=== PATIENT | male | born 1960 | race Caucasian/White ===

== ENCOUNTER 2017-08-24 02:09 | Outpatient (RCR) | payer MEDICARE, MEDICAID, SELFPAY ==
[2017-08-24] MEDS: Normal Saline Flush 10 ML SYR IVP (14:34)
[2017-08-24] MEDS: Heparin 500 UNITS/5 ML SYRINGE IV (14:34)
[2017-08-31] MEDS: Normal Saline Flush 10 ML SYR IVP (13:53)
[2017-08-31] MEDS: Heparin 500 UNITS/5 ML SYRINGE IV (13:53)
[2017-09-14] MEDS: Normal Saline Flush 10 ML SYR IVP (14:00)
[2017-09-14] MEDS: Heparin 500 UNITS/5 ML SYRINGE IV (14:00)
== END 2017-09-20 00:01 | disposition other institution (70) ==
LOC: INF 08-31 02:14
PROVIDERS: PCP Student in an Organized Health Care Education/Training Program; Visit Provider Internal Medicine
DX: E88.01 Alpha-1-antitrypsin deficiency (principal)
CPT/HCPCS: 96374 ×3; J0257 ×3

== ENCOUNTER → 2017-10-20 02:55 | Outpatient (RCR) | payer MEDICARE, MEDICAID, SELFPAY ==
[2017-09-21] MEDS: Heparin 500 UNITS/5 ML SYRINGE IV (13:15)
[2017-09-21] MEDS: Normal Saline Flush 10 ML SYR IVP (13:15)
[2017-09-21] MEDS: Proteinase Inhibitor 5 VIAL in EMPTY EVACUATED CONTAINER 1 EACH 100 VIAL IVPB (13:45)
[2017-09-28] MEDS: Heparin 500 UNITS/5 ML SYRINGE IV (13:30)
[2017-09-28] MEDS: Normal Saline Flush 10 ML SYR IVP (13:30)
[2017-09-28] MEDS: Proteinase Inhibitor 5 VIAL in EMPTY EVACUATED CONTAINER 1 EACH 100 VIAL IVPB (13:50)
[2017-10-05] MEDS: Normal Saline Flush 10 ML SYR IVP (13:51)
[2017-10-05] MEDS: Heparin 500 UNITS/5 ML SYRINGE IV (13:51)
[2017-10-05] MEDS: Proteinase Inhibitor 5 VIAL in EMPTY EVACUATED CONTAINER 1 EACH 100 VIAL IVPB (13:51)
[2017-10-12] MEDS: Proteinase Inhibitor 5 VIAL in EMPTY EVACUATED CONTAINER 1 EACH 100 VIAL IVPB (14:02)
[2017-10-12] MEDS: Heparin 500 UNITS/5 ML SYRINGE IV (14:03)
[2017-10-12] MEDS: Normal Saline Flush 10 ML SYR IVP (14:03)
[2017-10-20] MEDS: Proteinase Inhibitor 5 VIAL in EMPTY EVACUATED CONTAINER 1 EACH 100 VIAL IVPB (14:20)
[2017-10-20] MEDS: Heparin 500 UNITS/5 ML SYRINGE IV (14:20)
[2017-10-20] MEDS: Normal Saline Flush 10 ML SYR IVP (14:20)
== END ==
LOC: INF 09-21 01:02
PROVIDERS: PCP Student in an Organized Health Care Education/Training Program; Visit Provider Internal Medicine
DX: E88.01 Alpha-1-antitrypsin deficiency (principal)
CPT/HCPCS: 96374; 96523; J0257

== ENCOUNTER 2017-11-17 00:31 | Outpatient (RCR) | payer MEDICARE, MEDICAID, SELFPAY ==
[2017-10-26] MEDS: Proteinase Inhibitor 5 VIAL in EMPTY EVACUATED CONTAINER 1 EACH 100 VIAL IVPB (14:21)
[2017-10-26] MEDS: Normal Saline Flush 10 ML SYR IVP (14:22)
[2017-10-26] MEDS: Heparin 500 UNITS/5 ML SYRINGE IV (14:23)
[2017-11-03] MEDS: Normal Saline Flush 10 ML SYR IVP (13:45)
[2017-11-03] MEDS: Proteinase Inhibitor 5 VIAL in EMPTY EVACUATED CONTAINER 1 EACH 125 VIAL IVPB (14:20)
[2017-11-03] MEDS: Heparin 500 UNITS/5 ML SYRINGE IV (14:40)
[2017-11-09] MEDS: Heparin 500 UNITS/5 ML SYRINGE IV (14:18)
[2017-11-09] MEDS: Normal Saline Flush 10 ML SYR IVP (14:18)
[2017-11-09] MEDS: Proteinase Inhibitor 5 VIAL in EMPTY EVACUATED CONTAINER 1 EACH 100 VIAL IVPB (14:20)
[2017-11-17] MEDS: Normal Saline Flush 10 ML SYR IVP (13:49)
[2017-11-17] MEDS: Proteinase Inhibitor 5 VIAL in EMPTY EVACUATED CONTAINER 1 EACH 100 VIAL IVPB (13:49)
[2017-11-17] MEDS: Heparin 500 UNITS/5 ML SYRINGE IV (13:50)
== END 2017-11-19 23:59 | disposition home or self-care (01) ==
LOC: INF 00:31
PROVIDERS: PCP Student in an Organized Health Care Education/Training Program; Visit Provider Student in an Organized Health Care Education/Training Program
DX: E88.01 Alpha-1-antitrypsin deficiency (principal)
CPT/HCPCS: 96374; J0257

== ENCOUNTER 2017-12-01 15:54 | Outpatient (REF) | payer MEDICARE, MEDICAID, SELFPAY ==
[2017-12-01 17:21] LABS: BUN 12 mg/dL (7-18); CREATININE 0.42 mg/dL (0.70-1.30)
== END 2017-12-01 16:14 ==
LOC: LBN 15:54
PROVIDERS: PCP Student in an Organized Health Care Education/Training Program; Visit Provider Family Medicine
DX: Z04.89 Encounter for examination and observation for other specified reasons (principal); I10 Essential (primary) hypertension; E78.5 Hyperlipidemia, unspecified; E88.01 Alpha-1-antitrypsin deficiency
CPT/HCPCS: 84520; 82565

== ENCOUNTER 2017-12-12 14:33 | Outpatient (REF) | payer MEDICARE, MEDICAID, SELFPAY ==
[2017-12-12 14:51] LABS: Anion Gap 0.5 mmol/L (3-11); BUN 16 mg/dL (7-18); CO2 41.5 mmol/L (21.0-32.0); CREATININE 0.59 mg/dL (0.70-1.30); Calcium 9.1 mg/dL (8.5-10.1); Chloride 95 mmol/L (98-107); Glucose 94 mg/dL (70-100); Potassium 4.1 mmol/L (3.5-5.1); Sodium 137 mmol/L (136-145)
== END 2017-12-12 14:53 ==
LOC: LBN 14:33
PROVIDERS: PCP Student in an Organized Health Care Education/Training Program; Visit Provider Family Medicine
DX: J44.9 Chronic obstructive pulmonary disease, unspecified (principal); E88.01 Alpha-1-antitrypsin deficiency
CPT/HCPCS: 80048

== ENCOUNTER 2017-12-14 00:53 | Outpatient (RCR) | payer MEDICARE, MEDICAID, SELFPAY ==
[2017-11-24] MEDS: Proteinase Inhibitor 5 VIAL in EMPTY EVACUATED CONTAINER 1 EACH 100 VIAL IVPB (14:43)
[2017-11-24] MEDS: Normal Saline Flush 10 ML SYR IVP (14:46)
[2017-11-24] MEDS: Heparin 500 UNITS/5 ML SYRINGE IV (14:46)
[2017-11-30] MEDS: Proteinase Inhibitor 5 VIAL in EMPTY EVACUATED CONTAINER 1 EACH 100 VIAL IVPB (14:42)
[2017-11-30] MEDS: Normal Saline Flush 10 ML SYR IVP (14:43)
[2017-11-30] MEDS: Heparin 500 UNITS/5 ML SYRINGE IV (14:43)
[2017-12-07] MEDS: Heparin 500 UNITS/5 ML SYRINGE IV (14:50)
[2017-12-07] MEDS: Normal Saline Flush 10 ML SYR IVP (14:50)
[2017-12-07] MEDS: Proteinase Inhibitor 5 VIAL in EMPTY EVACUATED CONTAINER 1 EACH 100 VIAL IVPB (14:50)
[2017-12-14] MEDS: Normal Saline Flush 10 ML SYR IVP (13:45)
[2017-12-14] MEDS: Heparin 500 UNITS/5 ML SYRINGE IV (13:45)
[2017-12-14] MEDS: Proteinase Inhibitor 5 VIAL in EMPTY EVACUATED CONTAINER 1 EACH 100 VIAL IVPB (14:15)
== END 2017-12-20 23:59 | disposition home or self-care (01) ==
LOC: INF 00:53
PROVIDERS: PCP Student in an Organized Health Care Education/Training Program; Visit Provider Student in an Organized Health Care Education/Training Program
DX: E88.01 Alpha-1-antitrypsin deficiency (principal)
CPT/HCPCS: 96374; 96523; J0257

== ENCOUNTER 2018-01-18 02:04 | Outpatient (RCR) | payer MEDICARE, MEDICAID, SELFPAY ==
[2017-12-21] MEDS: Normal Saline Flush 10 ML SYR IVP (14:06)
[2017-12-21] MEDS: Heparin 500 UNITS/5 ML SYRINGE IV (14:06)
[2017-12-21] MEDS: Proteinase Inhibitor 5 VIAL in EMPTY EVACUATED CONTAINER 1 EACH 100 VIAL IVPB (14:17)
[2017-12-28] MEDS: Normal Saline Flush 10 ML SYR IVP (14:05)
[2017-12-28] MEDS: Heparin 500 UNITS/5 ML SYRINGE IV (14:05)
[2017-12-28] MEDS: Proteinase Inhibitor 5 VIAL in EMPTY EVACUATED CONTAINER 1 EACH 100 VIAL IVPB (14:05)
[2018-01-04] MEDS: Normal Saline Flush 10 ML SYR IVP (14:02)
[2018-01-04] MEDS: Heparin 500 UNITS/5 ML SYRINGE IV (14:03)
[2018-01-04] MEDS: Proteinase Inhibitor 5 VIAL in EMPTY EVACUATED CONTAINER 1 EACH 125 VIAL IVPB (14:21)
[2018-01-10] MEDS: Normal Saline Flush 10 ML SYR IVP (14:24)
[2018-01-10] MEDS: Heparin 500 UNITS/5 ML SYRINGE IV (14:24)
[2018-01-10] MEDS: Proteinase Inhibitor 5 VIAL in EMPTY EVACUATED CONTAINER 1 EACH 100 VIAL IVPB (14:24)
[2018-01-18] MEDS: Proteinase Inhibitor 5 VIAL in EMPTY EVACUATED CONTAINER 1 EACH 100 VIAL IVPB (14:27)
[2018-01-18] MEDS: Normal Saline Flush 10 ML SYR IVP (14:28)
== END 2018-01-19 23:59 | disposition home or self-care (01) ==
LOC: INF 02:04
PROVIDERS: PCP Student in an Organized Health Care Education/Training Program; Visit Provider Student in an Organized Health Care Education/Training Program
DX: E88.01 Alpha-1-antitrypsin deficiency (principal)
CPT/HCPCS: 96374; J0257

== ENCOUNTER 2018-02-15 01:57 | Outpatient (RCR) | payer MEDICARE, MEDICAID, SELFPAY ==
[2018-01-25] MEDS: Normal Saline Flush 10 ML SYR IVP (13:30)
[2018-01-25] MEDS: Heparin 500 UNITS/5 ML SYRINGE IV (13:30)
[2018-01-25] MEDS: Proteinase Inhibitor 5 VIAL in EMPTY EVACUATED CONTAINER 1 EACH 100 VIAL IVPB (14:00)
[2018-02-01] MEDS: Heparin 500 UNITS/5 ML SYRINGE IV (13:47)
[2018-02-01] MEDS: Normal Saline Flush 10 ML SYR IVP (13:47)
[2018-02-01] MEDS: Proteinase Inhibitor 5 VIAL in EMPTY EVACUATED CONTAINER 1 EACH 100 VIAL IVPB (14:09)
[2018-02-08] MEDS: Heparin 500 UNITS/5 ML SYRINGE IV (14:11)
[2018-02-08] MEDS: Normal Saline Flush 10 ML SYR IVP (14:11)
[2018-02-08] MEDS: Proteinase Inhibitor 5 VIAL in EMPTY EVACUATED CONTAINER 1 EACH 100 VIAL IVPB (14:11)
[2018-02-15] MEDS: Proteinase Inhibitor 5 VIAL in EMPTY EVACUATED CONTAINER 1 EACH 50 VIAL IVPB (13:51)
[2018-02-15] MEDS: Normal Saline Flush 10 ML SYR IVP (13:51)
[2018-02-15] MEDS: Heparin 500 UNITS/5 ML SYRINGE IV (13:52)
== END 2018-02-19 23:59 | disposition home or self-care (01) ==
LOC: INF 01:57
PROVIDERS: PCP Student in an Organized Health Care Education/Training Program; Visit Provider Student in an Organized Health Care Education/Training Program
DX: E88.01 Alpha-1-antitrypsin deficiency (principal)
CPT/HCPCS: 96374; 96523; J0257

== ENCOUNTER 2018-03-16 12:13 | Outpatient (REF) | payer MEDICARE, MEDICAID, SELFPAY ==
[2018-03-16 14:23] LABS: Abs Immature Grans 0.01 k/cumm (0.0-0.09); Absolute Basophil Count 0.01 k/cumm (0.0-0.2); Absolute Eosinophil Count 0.55 k/cumm (0.0-0.7); Absolute Lymphocyte Count 1.26 k/cumm (1.2-3.4); Absolute Monocyte Count 0.97 k/cumm (0.11-0.7); Absolute Neutrophil Count 5.33 k/cumm (1.2-6.7); Basophils % 0.1; Eosinophils % 6.8; HCT 36.1 % (40.0-50.0); HGB 10.6 g/dL (13.5-17.5); Immature Grans % 0.1; Lymphocytes % 15.5; Mean Corp. HGB Concentration 29.4 g/dL (32.0-36.0); Mean Corpuscular Hemoglobin 26.5 pg (27.0-33.0); Mean Corpuscular Volume 90.3 fL (80-95); Mean Platelet Volume 10.9 fL (8.0-11.0); Monocytes % 11.9; Neutrophils % 65.6; Platelet Count 289 x1000/uL (130-400); RBC Distribution Width 14.4 % (11.8-14.1); White Blood Cell Count 8.13 k/cumm (4.4-10.8)
[2018-03-16 23:12] LABS: Theophylline 7.4 ug/mL (10.0-20.0)
== END 2018-03-16 12:33 ==
LOC: LBN 12:13
PROVIDERS: PCP Student in an Organized Health Care Education/Training Program; Visit Provider Student in an Organized Health Care Education/Training Program
DX: J44.9 Chronic obstructive pulmonary disease, unspecified (principal); Z51.81 Encounter for therapeutic drug level monitoring; I10 Essential (primary) hypertension; E78.5 Hyperlipidemia, unspecified; F41.9 Anxiety disorder, unspecified
CPT/HCPCS: 80198; 85025

== ENCOUNTER 2018-03-22 01:30 | Outpatient (RCR) | payer MEDICARE, MEDICAID, SELFPAY ==
[2018-02-22] MEDS: Proteinase Inhibitor 5 VIAL in EMPTY EVACUATED CONTAINER 1 EACH 100 VIAL IVPB (14:05)
[2018-02-22] MEDS: Normal Saline Flush 10 ML SYR IVP (14:05)
[2018-02-22] MEDS: Heparin 500 UNITS/5 ML SYRINGE IV (14:06)
[2018-03-01] MEDS: Normal Saline Flush 10 ML SYR IVP (13:30)
[2018-03-01] MEDS: Proteinase Inhibitor 5 VIAL in EMPTY EVACUATED CONTAINER 1 EACH 100 VIAL IVPB (13:50)
[2018-03-01] MEDS: Heparin 500 UNITS/5 ML SYRINGE IV (14:04)
[2018-03-08] MEDS: Proteinase Inhibitor 5 VIAL in EMPTY EVACUATED CONTAINER 1 EACH 1 VIAL IVPB (13:55)
[2018-03-08] MEDS: Heparin 500 UNITS/5 ML SYRINGE IV (14:02)
[2018-03-08] MEDS: Normal Saline Flush 10 ML SYR IVP (14:02)
[2018-03-15] MEDS: Normal Saline Flush 10 ML SYR IVP (14:14)
[2018-03-15] MEDS: Heparin 500 UNITS/5 ML SYRINGE IV (14:14)
[2018-03-15] MEDS: Proteinase Inhibitor 5 VIAL in EMPTY EVACUATED CONTAINER 1 EACH 100 VIAL IVPB (14:14)
[2018-03-22] MEDS: Proteinase Inhibitor 5 VIAL in EMPTY EVACUATED CONTAINER 1 EACH 100 VIAL IVPB (13:51)
[2018-03-22] MEDS: Normal Saline Flush 10 ML SYR IVP (13:52)
[2018-03-22] MEDS: Heparin 500 UNITS/5 ML SYRINGE IV (13:52)
== END 2018-03-22 23:59 | disposition home or self-care (01) ==
LOC: INF 01:30
PROVIDERS: PCP Student in an Organized Health Care Education/Training Program; Visit Provider Student in an Organized Health Care Education/Training Program
DX: E88.01 Alpha-1-antitrypsin deficiency (principal)
CPT/HCPCS: 96374; J0257

== ENCOUNTER 2018-04-19 01:10 | Outpatient (RCR) | payer MEDICARE, MEDICAID, SELFPAY ==
[2018-03-29] MEDS: Proteinase Inhibitor 5 VIAL in EMPTY EVACUATED CONTAINER 1 EACH 100 VIAL IVPB (13:47)
[2018-03-29] MEDS: Normal Saline Flush 10 ML SYR IVP (13:47)
[2018-03-29] MEDS: Heparin 500 UNITS/5 ML SYRINGE IV (13:47)
[2018-04-05] MEDS: Proteinase Inhibitor 5 VIAL in EMPTY EVACUATED CONTAINER 1 EACH 100 VIAL IVPB (13:53)
[2018-04-05] MEDS: Heparin 500 UNITS/5 ML SYRINGE IV (13:56)
[2018-04-05] MEDS: Normal Saline Flush 10 ML SYR IVP (13:56)
[2018-04-12] MEDS: Heparin 500 UNITS/5 ML SYRINGE IV (13:49)
[2018-04-12] MEDS: Normal Saline Flush 10 ML SYR IVP (13:49)
[2018-04-12] MEDS: Proteinase Inhibitor 5 VIAL in EMPTY EVACUATED CONTAINER 1 EACH 50 VIAL IVPB (14:00)
[2018-04-19] MEDS: Proteinase Inhibitor 5 VIAL in EMPTY EVACUATED CONTAINER 1 EACH 100 VIAL IVPB (13:57)
[2018-04-19] MEDS: Heparin 500 UNITS/5 ML SYRINGE IV (14:02)
[2018-04-19] MEDS: Normal Saline Flush 10 ML SYR IVP (14:02)
== END 2018-04-19 23:59 | disposition home or self-care (01) ==
LOC: INF 01:10
PROVIDERS: PCP Student in an Organized Health Care Education/Training Program; Visit Provider Student in an Organized Health Care Education/Training Program
DX: E88.01 Alpha-1-antitrypsin deficiency (principal)
CPT/HCPCS: 96374; 96523; J0257

== ENCOUNTER 2018-05-17 00:40 | Outpatient (RCR) | payer MEDICARE, MEDICAID, SELFPAY ==
[2018-04-26] MEDS: Normal Saline Flush 10 ML SYR IVP (14:02)
[2018-04-26] MEDS: Heparin 500 UNITS/5 ML SYRINGE IV (14:02)
[2018-04-26] MEDS: Proteinase Inhibitor 5 VIAL in EMPTY EVACUATED CONTAINER 1 EACH 100 VIAL IVPB (14:03)
[2018-05-04] MEDS: Heparin 500 UNITS/5 ML SYRINGE IV (14:24)
[2018-05-04] MEDS: Normal Saline Flush 10 ML SYR IVP (14:24)
[2018-05-04] MEDS: Proteinase Inhibitor 5 VIAL in EMPTY EVACUATED CONTAINER 1 EACH 100 VIAL IVPB (14:25)
[2018-05-10] MEDS: Normal Saline Flush 10 ML SYR IVP ×2 (13:45→14:00)
[2018-05-10] MEDS: Heparin 500 UNITS/5 ML SYRINGE IV ×2 (14:00)
[2018-05-10] MEDS: Proteinase Inhibitor 5 VIAL in EMPTY EVACUATED CONTAINER 1 EACH 100 VIAL IVPB (14:05)
[2018-05-17] MEDS: Proteinase Inhibitor 5 VIAL in EMPTY EVACUATED CONTAINER 1 EACH 100 VIAL IVPB (13:47)
[2018-05-17] MEDS: Normal Saline Flush 10 ML SYR IVP (13:53)
[2018-05-17] MEDS: Heparin 500 UNITS/5 ML SYRINGE IV (13:53)
== END 2018-05-20 23:59 | disposition home or self-care (01) ==
LOC: INF 00:40
PROVIDERS: PCP Student in an Organized Health Care Education/Training Program; Visit Provider Student in an Organized Health Care Education/Training Program
DX: E88.01 Alpha-1-antitrypsin deficiency (principal)
CPT/HCPCS: 96374; J0257

== ENCOUNTER 2018-06-12 09:56 | Outpatient (CLI) | payer MEDICARE, MEDICAID, SELFPAY ==
[2018-06-12 11:06] LABS: Anion Gap 0.4 mmol/L (3-11); BUN 13 mg/dL (7-18); CO2 41.6 mmol/L (21.0-32.0); CREATININE 0.56 mg/dL (0.70-1.30); Calcium 8.7 mg/dL (8.5-10.1); Chloride 96 mmol/L (98-107); Glucose 94 mg/dL (70-100); Sodium 138 mmol/L (136-145)
== END 2018-06-12 10:16 ==
PROVIDERS: PCP Student in an Organized Health Care Education/Training Program; Visit Provider Nurse Practitioner Adult Health
DX: M62.81 Muscle weakness (generalized) (principal)
CPT/HCPCS: 80048

== ENCOUNTER 2018-06-14 02:16 | Outpatient (RCR) | payer MEDICARE, MEDICAID, SELFPAY ==
[2018-05-25] MEDS: Proteinase Inhibitor 5 VIAL in EMPTY EVACUATED CONTAINER 1 EACH 100 VIAL IVPB (13:55)
[2018-05-25] MEDS: Heparin 500 UNITS/5 ML SYRINGE IV (14:03)
[2018-05-25] MEDS: Normal Saline Flush 10 ML SYR IVP (14:03)
[2018-05-31] MEDS: Heparin 500 UNITS/5 ML SYRINGE IV (13:30)
[2018-05-31] MEDS: Normal Saline Flush 10 ML SYR IVP (13:30)
[2018-05-31] MEDS: Proteinase Inhibitor 5 VIAL in EMPTY EVACUATED CONTAINER 1 EACH 100 VIAL IVPB (13:48)
[2018-06-07] MEDS: Heparin 500 UNITS/5 ML SYRINGE IV (13:30)
[2018-06-07] MEDS: Normal Saline Flush 10 ML SYR IVP (13:30)
[2018-06-07] MEDS: Proteinase Inhibitor 5 VIAL in EMPTY EVACUATED CONTAINER 1 EACH 100 VIAL IVPB (13:40)
[2018-06-14] MEDS: Normal Saline Flush 10 ML SYR IVP (13:30)
[2018-06-14] MEDS: Proteinase Inhibitor 5 VIAL in EMPTY EVACUATED CONTAINER 1 EACH 100 VIAL IVPB (14:10)
[2018-06-14] MEDS: Heparin 500 UNITS/5 ML SYRINGE IV (14:20)
== END 2018-06-19 23:59 | disposition home or self-care (01) ==
LOC: INF 02:16
PROVIDERS: PCP Student in an Organized Health Care Education/Training Program; Visit Provider Student in an Organized Health Care Education/Training Program
DX: E88.01 Alpha-1-antitrypsin deficiency (principal)
CPT/HCPCS: 96365; 96374; J0257

== ENCOUNTER 2018-07-19 01:58 | Outpatient (RCR) | payer MEDICARE, MEDICAID, SELFPAY ==
[2018-06-21] MEDS: Proteinase Inhibitor 5 VIAL in EMPTY EVACUATED CONTAINER 1 EACH 100 VIAL IVPB (14:00)
[2018-06-21] MEDS: Normal Saline Flush 10 ML SYR IVP (14:53)
[2018-06-21] MEDS: Heparin 500 UNITS/5 ML SYRINGE IV (15:08)
[2018-06-27] MEDS: Proteinase Inhibitor 5 VIAL in EMPTY EVACUATED CONTAINER 1 EACH 100 VIAL IVPB (13:40)
[2018-06-27] MEDS: Normal Saline Flush 10 ML SYR IVP (13:46)
[2018-06-27] MEDS: Heparin 500 UNITS/5 ML SYRINGE IV (13:54)
[2018-07-05] MEDS: Proteinase Inhibitor 5 VIAL in EMPTY EVACUATED CONTAINER 1 EACH 100 VIAL IVPB (13:54)
[2018-07-05] MEDS: Heparin 500 UNITS/5 ML SYRINGE IV (13:55)
[2018-07-05] MEDS: Normal Saline Flush 10 ML SYR IVP (13:55)
[2018-07-12] MEDS: Heparin 500 UNITS/5 ML SYRINGE IV (13:58)
[2018-07-12] MEDS: Normal Saline Flush 10 ML SYR IVP (13:58)
[2018-07-12] MEDS: Proteinase Inhibitor 5 VIAL in EMPTY EVACUATED CONTAINER 1 EACH 100 VIAL IVPB (14:09)
[2018-07-19] MEDS: Heparin 500 UNITS/5 ML SYRINGE IV (13:44)
[2018-07-19] MEDS: Normal Saline Flush 10 ML SYR IVP (13:44)
[2018-07-19] MEDS: Proteinase Inhibitor 5 VIAL in EMPTY EVACUATED CONTAINER 1 EACH 100 VIAL IVPB (13:44)
== END 2018-07-20 23:59 | disposition home or self-care (01) ==
LOC: INF 01:58
PROVIDERS: PCP Student in an Organized Health Care Education/Training Program; Visit Provider Student in an Organized Health Care Education/Training Program
DX: E88.01 Alpha-1-antitrypsin deficiency (principal)
CPT/HCPCS: 96374; J0257

== ENCOUNTER 2018-07-26 13:51 | Emergency (ER) | payer MEDICARE, MEDICAID, SELFPAY ==
[2018-07-26 13:54] VITALS: BP 123/84; PULSE 103; RESP 22; TEMP 37.2; O2SAT 94
--- NOTE | 2018-07-26 14:01 | W.ED.GENAD ---
Discharge Plan Disposition Patient Disposition: HOME Condition: Stable Discharge Details Chief Complaint: SOB Clinical Impression: COPD with exacerbation Primary Care Provider: Piper Ji ED Provider: Lucas Saldivar Home Meds and New Rx's Prescriptions: New prednisone 20 mg tablet 60 mg PO DAILY 4 Days Qty: 12 RF: 0 levofloxacin 750 mg tablet 750 mg PO DAILY 4 Days Qty: 4 RF: 0 Continued alpha-1 proteinase inhib.(hum) [Prolastin-C] 1,000 MG recon soln 1,000 mg IV . MONDAY RF: 0 loratadine 10 MG tablet,disintegrating 10 mg PO DAILY RF: 0 ipratropium-albuterol [DuoNeb] 3 ML solution for nebulization 3 ml Inhalation QID RF: 0 theophylline 100 MG tablet extended release 12 hr 200 mg PO BID RF: 0 omeprazole [Prilosec] 20 MG capsule,delayed release(DR/EC) 20 mg PO DAILY RF: 0 montelukast 10 MG tablet 10 mg PO DAILY RF: 0 ipratropium-albuterol [Combivent] 14.7 GM aerosol 2 puff Inhalation QID RF: 0 docusate sodium [Colace] 100 MG capsule 100 mg PO BID PRNQty: 180 RF: 4 sennosides [Senna Laxative] 8.6 MG tablet 2 tab PO BID RF: 0 morphine 15 MG tablet 15 mg PO Q6H PRNQty: 30 RF: 0 alprazolam 0.5 MG tablet PO s directed MDD 5 tabs Qty: 70 RF: 5 methadone 5 MG tablet 2.5 mg PO HS Qty: 14 RF: 0 methadone [Dolophine] 5 mg tablet See Rx Instructions PO TID MDD 17.5 14 Days Qty: 50 RF: 0 Inogen oxygen conserving device Qty: 1 RF: 0 albuterol sulfate [Ventolin HFA] 60 PUFF HFA aerosol inhaler 2 puff Inhalation Q4H PRN PRN (Reason: dyspnea) Qty: 3 RF: 0 acetaminophen 650 MG tablet extended release 650 mg PO PRN PRNRF: 0 naproxen 250 MG tablet 500 mg PO BID PRNRF: 0 simethicone 80 MG tablet,chewable 80 mg PO BID RF: 0 bisacodyl 10 MG suppository 1 supp PRN PRNRF: 0 guaifenesin [Mucinex] 600 MG tablet extended release 12hr 600 mg BID RF: 0 formoterol fumarate [Foradil Aerolizer] 1 PUFF capsule, w/inhalation device 1 cap Inhalation BID RF: 0 lidocaine [Lidoderm] 1 PATCH adhesive patch,medicated 1 patch Topical Q12H PRNRF: 0 aspirin [Aspir-81] 81 MG tablet,delayed release (DR/EC) 81 mg PO DAILY RF: 0 paroxetine HCl 20 MG tablet 20 mg PO DAILY RF: 0 guaifenesin 100 MG/5 ML liquid 30 ml PO Q6H PRNRF: 0 triamcinolone acetonide 15 GM cream 1 applic Topical TID PRNRF: 0 Discharge Instructions Additional Instructions: You are being treated for a copd exacerbation continue to use your inhalers/nebulizers as needed follow up with your primary care provider within a week if you feel you are becoming more ill or more short of breath return to the emergency department for reevaluation Medical Decision Making 57 yo male with hx of alpha 1 antitrypsin deficiency, opd, hld, who comes in with shortness of breath and increased cough for several days. Denies fevers or chest pain/pressure. He was at the infusion center and brought down here with shortness of breath. He is speaking in 2-3 word sentences, does have good air movement bilaterally though with diffuse wheezing, and notes he has had an increased cough from baseline. I suspect copd exacerbation, will tx with steroids and nebs and obtain cxr. He has no evidence of dvt and no pleuritic chest pain and PE fits with copd exacerbation so doubt pulmonary embolism at this time and no jvd or pitting edema or crackles so doubt chf exacerbation pt declining nebs at this time as he had 2 prior to coming in, he has capacity to make his own decisions and understands he will not be getting adequate tx without more nebs. pt feeling much better and is now speaking in normal sentences and requesting d/c. I feel this is reasonable given hd stable and has o2 saturation in mid 90's on his normal o2 settings. will start abx and steroids for copd exacerbation, advised f/u with pcp and return precautions given Differential Diagnosis copd, pna Medical Records Medical records reviewed: Yes I reviewed the patient's medical records. Imaging Data Radiologic Study: Attestation: I personally reviewed and interpreted this imaging study as follows: Imaging: X-Ray My impression: no acute findings Lab Data Lab results reviewed: Yes I reviewed the patient's lab results. HPI General Mode of arrival: ambulatory. Date/Time Provider Initiated Documentation: 07/26/18 13:55. Limitations to Documentation: no limitations. Information obtained by: patient. History of Present Illness 57 year old M presents to the emergency department with the chief complaint of shortness of breath, described as moderate, Patient started experiencing this day(s) (3) and it has been constant. No relieving factors improve symptom(s), No exacerbating factors reported . Patient notes cough. Patient did receive the following treatments prior to arrival, none Related Data Home Medications Medication Instructions Recorded Confirmed alpha-1 proteinase inhib.(hum) 1,000 mg IV . MONDAY vial 05/08/12 12/15/17 [Prolastin-C] ipratropium-albuterol [Combivent] 2 puff INHALATION QID puff 05/10/12 12/15/17 ipratropium-albuterol [DuoNeb] 3 ml INHALATION QID 05/10/12 12/15/17 loratadine 10 mg PO DAILY tab-cap 05/10/12 12/15/17 montelukast 10 mg PO DAILY tab-cap 05/10/12 12/15/17 omeprazole [Prilosec] 20 mg PO DAILY tab-cap 05/10/12 12/15/17 theophylline 200 mg PO BID 05/10/12 12/15/17 docusate sodium [Colace] 100 mg PO BID PRN #180 cap 07/24/12 12/15/17 albuterol sulfate [Ventolin HFA] 2 puff INHALATION Q4H PRN PRN #3 08/13/12 12/15/17 inh acetaminophen 650 mg PO PRN PRN 11/18/12 12/15/17 sennosides [Senna Laxative] 2 tab PO BID tab-cap 12/10/12 12/15/17 naproxen 500 mg PO BID PRN 01/11/13 12/15/17 simethicone 80 mg PO BID 04/01/13 12/15/17 bisacodyl 1 supp PRN PRN 04/10/13 12/15/17 guaifenesin [Mucinex] 600 mg BID 04/10/13 12/15/17 formoterol fumarate [Foradil 1 cap INHALATION BID 08/21/13 12/15/17 Aerolizer] lidocaine [Lidoderm] 1 patch TOPICAL Q12H PRN 01/17/14 12/15/17 aspirin [Aspir-81] 81 mg PO DAILY 11/25/14 12/15/17 paroxetine HCl 20 mg PO DAILY 11/25/14 12/15/17 guaifenesin 30 ml PO Q6H PRN 02/15/15 12/15/17 triamcinolone acetonide 1 applic TOPICAL TID PRN 02/15/15 12/15/17 morphine 15 mg PO Q6H PRN #30 tab 01/06/17 12/15/17 alprazolam 0 PO s directed #70 tab-cap MDD 5 10/12/17 12/15/17 tabs methadone 2.5 mg PO HS #14 tab-cap 10/19/17 12/15/17 methadone 5 mg tablet See Rx Instructions PO TID 14 Days 12/06/17 12/15/17 #50 tab MDD 17.5 Inogen oxygen conserving device #1 ea 12/13/17 12/15/17 levofloxacin 750 mg PO DAILY 4 Days #4 tab 07/26/18 prednisone 60 mg PO DAILY 4 Days #12 tab 07/26/18 Previous Rx's Medication Instructions Recorded albuterol sulfate [Ventolin HFA] 2 puff INHALATION Q4H PRN PRN #3 08/13/12 inh methadone 5 mg tablet See Rx Instructions PO TID 14 Days 12/06/17 #50 tab MDD 17.5 Inogen oxygen conserving device #1 ea 12/13/17 levofloxacin 750 mg PO DAILY 4 Days #4 tab 07/26/18 prednisone 60 mg PO DAILY 4 Days #12 tab 07/26/18 Allergies Allergy/AdvReac Type Severity Reaction Status Date / Time pneumococcal vaccine AdvReac local Unverified 08/11/16 15:08 [Pneumococcal Vaccine] reaction to shot site Review of Systems Review of Systems All systems reviewed & are unremarkable except as noted in HPI and below Constitutional Denies chills, Denies fever(s) and Denies weakness Cardiovascular Denies chest pain Gastrointestinal Denies abdominal pain, Denies nausea and Denies vomiting Integumentary/Breasts Denies rash Neurologic Denies weakness PFSH Medical History Yqnnv-6-hkmwdmnlggy deficiency (Chronic) History of tobacco abuse (Chronic) Chronic low back pain (Chronic) Anxiety (Chronic) COPD (chronic obstructive pulmonary disease) (Chronic 05/19/13) Family History Sister Chronic lung disease Social History Smoking/Tobacco Use Status: Former Tobacco Use Tobacco: How many years used: 45 Drug use: Never Adopted: Yes Caregiver/Support person: No Foster care: Yes Household members: none Housing: half-way Pets and animals: No What type of physical activity do you participate in: none Do you feel safe in your relationship?: Yes Exam Const Orientation: alert HENMT Head: normal to inspection Ears: external ears normal General nose exam: external nose normal Mouth: moist mucous membranes Eyes General: appearance normal, both eyes and all related structures Neck Neck: normal visual inspection Resp Effort & Inspection: audible wheezes Cardio Rate: regular rate Skin General skin exam: no rashes or lesions noted Neuro General: alert and oriented x3 Extrem General: normal to inspection Psych Mental Status: mental status grossly normal
--- NOTE | 2018-07-26 14:02 | DI.RAD_ITS ---
SYMPTOMS/DIAGNOSIS: COUGH, SHORTNESS OF BREATH CHEST X-RAY, PORTABLE AP VIEW: Comparison is 10/06/16. The heart size and pulmonary vasculature are within normal limits. The lungs are hyperinflated with flattened diaphragms suggesting underlying COPD. There is again seen prominent interstitial markings in the lung bases, left greater than right. This appears stable given the slight changes in technique suggesting chronic pulmonary fibrosis. No definite superimposed infiltrate, effusion or pneumothorax is identified. The tip of the indwelling central venous catheter is in good position in the superior vena cava. IMPRESSION: No acute pulmonary process.
[2018-07-26] MEDS: methylPREDNISolone SUCC 125 MG VIAL IVP (14:15)
[2018-07-26] MEDS: Normal Saline Flush 10 ML SYR IVP (14:17)
[2018-07-26 14:19] LABS: Abs Immature Grans 0.03 k/cumm (0.0-0.09); Absolute Basophil Count 0.02 k/cumm (0.0-0.2); Absolute Eosinophil Count 0.36 k/cumm (0.0-0.7); Absolute Lymphocyte Count 1.43 k/cumm (1.2-3.4); Absolute Monocyte Count 0.76 k/cumm (0.11-0.7); Absolute Neutrophil Count 6.13 k/cumm (1.2-6.7); Basophils % 0.2; Eosinophils % 4.1; HCT 39.5 % (40.0-50.0); HGB 11.4 g/dL (13.5-17.5); Immature Grans % 0.3; Lymphocytes % 16.4; Mean Corp. HGB Concentration 28.9 g/dL (32.0-36.0); Mean Corpuscular Hemoglobin 25.6 pg (27.0-33.0); Mean Corpuscular Volume 88.6 fL (80-95); Mean Platelet Volume 10.4 fL (8.0-11.0); Monocytes % 8.7; Neutrophils % 70.3; Platelet Count 335 x1000/uL (130-400); RBC 4.46 m/cumm (4.50-6.00); RBC Distribution Width 15.4 % (11.8-14.1); White Blood Cell Count 8.73 k/cumm (4.4-10.8)
[2018-07-26 14:30] LABS: ALT 20 U/L (12-78); AST 20 U/L (15-37); Alkaline Phosphatase 149 U/L (46-116); Anion Gap 6.3 mmol/L (3-11); BUN 12 mg/dL (7-18); Bilirubin, Total 0.2 mg/dL (0.2-1.0); CO2 37.7 mmol/L (21.0-32.0); CREATININE 0.65 mg/dL (0.70-1.30); Calcium 8.9 mg/dL (8.5-10.1); Chloride 94 mmol/L (98-107); Glucose 114 mg/dL (70-100); Magnesium 1.9 mg/dL (1.8-2.4); Potassium 3.9 mmol/L (3.5-5.1); Sodium 138 mmol/L (136-145); Total Protein 9.1 g/dL (6.4-8.2)
[2018-07-26] MEDS: levoFLOXacin 500 MG, levoFLOXacin 250 MG 750 MG PO (14:58)
--- NOTE | 2018-07-26 15:02 | NUR.NOTE ---
YOUNG blackmon spoke to infusion clinic, patient wants iv line to stay in place and infusion clinic aware and will dc line after use. MD Saldivar aware of plan Nursing Note:
[2018-07-26 15:03] VITALS: BP 115/80; PULSE 105; RESP 18; TEMP 37.2; O2SAT 91
[2018-07-26 18:31] VITALS: RESP 24
== END 2018-07-26 15:07 | disposition home or self-care (01) ==
LOC: ER 15:06
PROVIDERS: Emergency Provider Emergency Medicine; PCP Student in an Organized Health Care Education/Training Program
DX: J44.1 Chronic obstructive pulmonary disease with (acute) exacerbation (principal); Z87.891 Personal history of nicotine dependence; E88.01 Alpha-1-antitrypsin deficiency
CPT/HCPCS: 36415; 80053; 96374; 99284; 71045; 83735; 85025; J0257; J2930

== ENCOUNTER 2018-08-16 01:19 | Outpatient (RCR) | payer MEDICARE, MEDICAID, SELFPAY ==
[2018-07-26] MEDS: Proteinase Inhibitor 5 VIAL in EMPTY EVACUATED CONTAINER 1 EACH 100 VIAL IVPB (15:10)
[2018-07-26] MEDS: Normal Saline Flush 10 ML SYR IVP (15:10)
[2018-08-02] MEDS: Heparin 500 UNITS/5 ML SYRINGE IV (13:21)
[2018-08-02] MEDS: Normal Saline Flush 10 ML SYR IVP (13:21)
[2018-08-02] MEDS: Proteinase Inhibitor 5 VIAL in EMPTY EVACUATED CONTAINER 1 EACH 100 VIAL IVPB (13:58)
[2018-08-10] MEDS: Heparin 500 UNITS/5 ML SYRINGE IV (13:35)
[2018-08-10] MEDS: Normal Saline Flush 10 ML SYR IVP (13:35)
[2018-08-10] MEDS: Proteinase Inhibitor 5 VIAL in EMPTY EVACUATED CONTAINER 1 EACH 100 VIAL IVPB (13:38)
[2018-08-16] MEDS: Normal Saline Flush 10 ML SYR IVP (13:42)
[2018-08-16] MEDS: Heparin 500 UNITS/5 ML SYRINGE IV (13:42)
[2018-08-16] MEDS: Proteinase Inhibitor 5 VIAL in EMPTY EVACUATED CONTAINER 1 EACH 25 VIAL IVPB (14:08)
== END 2018-08-19 23:59 | disposition home or self-care (01) ==
LOC: INF 01:19
PROVIDERS: PCP Student in an Organized Health Care Education/Training Program; Visit Provider Student in an Organized Health Care Education/Training Program
DX: E88.01 Alpha-1-antitrypsin deficiency (principal)
CPT/HCPCS: 96374; J0257

== ENCOUNTER 2018-09-13 01:38 | Outpatient (RCR) | payer MEDICARE, MEDICAID, SELFPAY ==
[2018-08-24] MEDS: Heparin 500 UNITS/5 ML SYRINGE IV (14:12)
[2018-08-24] MEDS: Proteinase Inhibitor 5 VIAL in EMPTY EVACUATED CONTAINER 1 EACH 100 VIAL IVPB (14:12)
[2018-08-24] MEDS: Normal Saline Flush 10 ML SYR IVP (14:12)
[2018-08-31] MEDS: Proteinase Inhibitor 5 VIAL in EMPTY EVACUATED CONTAINER 1 EACH 100 VIAL IVPB (14:05)
[2018-08-31] MEDS: Heparin 500 UNITS/5 ML SYRINGE IV (14:10)
[2018-08-31] MEDS: Normal Saline Flush 10 ML SYR IVP (14:10)
[2018-09-06] MEDS: Heparin 500 UNITS/5 ML SYRINGE IV (14:05)
[2018-09-06] MEDS: Proteinase Inhibitor 5 VIAL in EMPTY EVACUATED CONTAINER 1 EACH 100 VIAL IVPB (14:05)
[2018-09-06] MEDS: Normal Saline Flush 10 ML SYR IVP (14:05)
[2018-09-13] MEDS: Proteinase Inhibitor 5 VIAL in EMPTY EVACUATED CONTAINER 1 EACH 100 VIAL IVPB (14:07)
[2018-09-13] MEDS: Heparin 500 UNITS/5 ML SYRINGE IV (14:09)
[2018-09-13] MEDS: Normal Saline Flush 10 ML SYR IVP (14:09)
== END 2018-09-19 23:59 | disposition home or self-care (01) ==
LOC: INF 01:38
PROVIDERS: PCP Student in an Organized Health Care Education/Training Program; Visit Provider Student in an Organized Health Care Education/Training Program
DX: E88.01 Alpha-1-antitrypsin deficiency (principal)
CPT/HCPCS: 96374; 96523; J0257

== ENCOUNTER 2018-09-28 11:36 | Outpatient (CLI) | payer MEDICARE, MEDICAID, SELFPAY ==
--- NOTE | 2018-09-28 12:13 | DI.RAD_ITS ---
SYMPTOMS/DIAGNOSIS: DECREASED O2 SAT, HYPOXIA PA AND LATERAL CHEST: The heart is not enlarged. There are changes of diffuse COPD and pulmonary fibrotic changes are noted. Findings appear stable from previous chest film of 07/26/18. No acute consolidation seen. No pleural effusion seen. Right subclavian indwelling catheter again noted. CONCLUSION: No evidence of acute change.
== END 2018-09-28 11:56 ==
PROVIDERS: PCP Student in an Organized Health Care Education/Training Program; Visit Provider Nurse Practitioner Adult Health
DX: R09.02 Hypoxemia (principal)
CPT/HCPCS: 71046

== ENCOUNTER 2018-10-17 02:26 | Outpatient (RCR) | payer MEDICARE, MEDICAID, SELFPAY ==
[2018-09-20] MEDS: Heparin 500 UNITS/5 ML SYRINGE IV (13:45)
[2018-09-20] MEDS: Normal Saline Flush 10 ML SYR IVP (13:45)
[2018-09-20] MEDS: Proteinase Inhibitor 5 VIAL in EMPTY EVACUATED CONTAINER 1 EACH 100 VIAL IVPB (14:20)
[2018-09-26] MEDS: Heparin 500 UNITS/5 ML SYRINGE IV (11:19)
[2018-09-26] MEDS: Proteinase Inhibitor 5 VIAL in EMPTY EVACUATED CONTAINER 1 EACH 100 VIAL IVPB (11:19)
[2018-09-26] MEDS: Normal Saline Flush 10 ML SYR IVP (11:19)
[2018-10-03] MEDS: Normal Saline Flush 10 ML SYR IVP (13:51)
[2018-10-03] MEDS: Proteinase Inhibitor 5 VIAL in EMPTY EVACUATED CONTAINER 1 EACH 100 VIAL IVPB (13:51)
[2018-10-10] MEDS: Proteinase Inhibitor 5 VIAL in EMPTY EVACUATED CONTAINER 1 EACH 100 VIAL IVPB (14:00)
[2018-10-10] MEDS: Heparin 500 UNITS/5 ML SYRINGE IV (14:00)
[2018-10-10] MEDS: Normal Saline Flush 10 ML SYR IVP (14:00)
[2018-10-17] MEDS: Proteinase Inhibitor 5 VIAL in EMPTY EVACUATED CONTAINER 1 EACH 1 VIAL IVPB (13:32)
[2018-10-17] MEDS: Normal Saline Flush 10 ML SYR IVP (13:42)
[2018-10-17] MEDS: Heparin 500 UNITS/5 ML SYRINGE IV (13:43)
== END 2018-10-20 23:59 | disposition home or self-care (01) ==
LOC: INF 02:26
PROVIDERS: PCP Student in an Organized Health Care Education/Training Program; Visit Provider Student in an Organized Health Care Education/Training Program
DX: E88.01 Alpha-1-antitrypsin deficiency (principal)
CPT/HCPCS: 96374; 96523; J0257

== ENCOUNTER 2018-11-15 02:02 | Outpatient (RCR) | payer MEDICARE, MEDICAID, SELFPAY ==
[2018-10-25] MEDS: Normal Saline Flush 10 ML SYR IVP (14:06)
[2018-10-25] MEDS: Heparin 500 UNITS/5 ML SYRINGE IV (14:06)
[2018-10-25] MEDS: Proteinase Inhibitor 5 VIAL in EMPTY EVACUATED CONTAINER 1 EACH 100 VIAL IVPB (14:06)
[2018-11-01] MEDS: Proteinase Inhibitor 5 VIAL in EMPTY EVACUATED CONTAINER 1 EACH 100 VIAL IVPB (14:20)
[2018-11-01] MEDS: Normal Saline Flush 10 ML SYR IVP (14:55)
[2018-11-01] MEDS: Heparin 500 UNITS/5 ML SYRINGE IV (14:55)
[2018-11-08] MEDS: Normal Saline Flush 10 ML SYR IVP (13:52)
[2018-11-08] MEDS: Proteinase Inhibitor 5 VIAL in EMPTY EVACUATED CONTAINER 1 EACH 100 VIAL IVPB (13:52)
[2018-11-08] MEDS: Heparin 500 UNITS/5 ML SYRINGE IV (13:52)
[2018-11-15] MEDS: Heparin 500 UNITS/5 ML SYRINGE IV (14:15)
[2018-11-15] MEDS: Proteinase Inhibitor 5 VIAL in EMPTY EVACUATED CONTAINER 1 EACH 100 VIAL IVPB (14:15)
[2018-11-15] MEDS: Normal Saline Flush 10 ML SYR IVP (14:15)
== END 2018-11-19 23:59 | disposition home or self-care (01) ==
LOC: INF 02:02
PROVIDERS: PCP Student in an Organized Health Care Education/Training Program; Visit Provider Student in an Organized Health Care Education/Training Program
DX: E88.01 Alpha-1-antitrypsin deficiency (principal)
CPT/HCPCS: 96374; J0257

== ENCOUNTER 2018-12-13 13:00 | Outpatient (REF) | payer MEDICARE, MEDICAID, SELFPAY ==
[2018-12-13 15:09] LABS: Anion Gap 2.8 mmol/L (3-11); BUN 11 mg/dL (7-18); CO2 36.2 mmol/L (21.0-32.0); CREATININE 0.53 mg/dL (0.70-1.30); Calcium 8.8 mg/dL (8.5-10.1); Chloride 98 mmol/L (98-107); Glucose 95 mg/dL (70-100); Potassium 5.2 mmol/L (3.5-5.1); Sodium 137 mmol/L (136-145)
== END 2018-12-13 13:20 ==
LOC: LBN 13:00
PROVIDERS: PCP Student in an Organized Health Care Education/Training Program; Visit Provider Nurse Practitioner Adult Health
DX: R79.89 Other specified abnormal findings of blood chemistry (principal)
CPT/HCPCS: 80048

== ENCOUNTER 2018-12-20 01:49 | Outpatient (RCR) | payer MEDICARE, MEDICAID, SELFPAY ==
[2018-11-22] MEDS: Normal Saline Flush 10 ML SYR IVP (13:19)
[2018-11-22] MEDS: Heparin 500 UNITS/5 ML SYRINGE IV (13:20)
[2018-11-22] MEDS: Proteinase Inhibitor 5 VIAL in EMPTY EVACUATED CONTAINER 1 EACH 100 VIAL IVPB (14:00)
[2018-11-29] MEDS: Heparin 500 UNITS/5 ML SYRINGE IV (14:14)
[2018-11-29] MEDS: Normal Saline Flush 10 ML SYR IVP (14:14)
[2018-11-29] MEDS: Proteinase Inhibitor 5 VIAL in EMPTY EVACUATED CONTAINER 1 EACH 100 VIAL IVPB (14:14)
[2018-12-06] MEDS: Normal Saline Flush 10 ML SYR IVP (13:40)
[2018-12-06] MEDS: Heparin 500 UNITS/5 ML SYRINGE IV (13:41)
[2018-12-06] MEDS: Proteinase Inhibitor 5 VIAL in EMPTY EVACUATED CONTAINER 1 EACH 100 VIAL IVPB (13:57)
[2018-12-13] MEDS: Normal Saline Flush 10 ML SYR IVP (14:05)
[2018-12-13] MEDS: Heparin 500 UNITS/5 ML SYRINGE IV (14:05)
[2018-12-13] MEDS: Proteinase Inhibitor 5 VIAL in EMPTY EVACUATED CONTAINER 1 EACH 100 VIAL IVPB (14:06)
[2018-12-20] MEDS: Normal Saline Flush 10 ML SYR IVP (13:51)
[2018-12-20] MEDS: Proteinase Inhibitor 5 VIAL in EMPTY EVACUATED CONTAINER 1 EACH 100 VIAL IVPB (13:51)
[2018-12-20] MEDS: Heparin 500 UNITS/5 ML SYRINGE IV (13:52)
== END 2018-12-20 23:59 | disposition home or self-care (01) ==
LOC: INF 01:49
PROVIDERS: PCP Student in an Organized Health Care Education/Training Program; Visit Provider Student in an Organized Health Care Education/Training Program
DX: E88.01 Alpha-1-antitrypsin deficiency (principal)
CPT/HCPCS: 96374; 96523; J0257

== ENCOUNTER 2019-01-18 02:01 | Outpatient (RCR) | payer MEDICARE, MEDICAID, SELFPAY ==
[2018-12-27] MEDS: Proteinase Inhibitor 5 VIAL in EMPTY EVACUATED CONTAINER 1 EACH 100 VIAL IVPB (14:00)
[2018-12-27] MEDS: Heparin 500 UNITS/5 ML SYRINGE IV (14:10)
[2018-12-27] MEDS: Normal Saline Flush 10 ML SYR IVP (14:10)
[2019-01-03] MEDS: Proteinase Inhibitor 5 VIAL in EMPTY EVACUATED CONTAINER 1 EACH 100 VIAL IVPB (14:30)
[2019-01-03] MEDS: Heparin 500 UNITS/5 ML SYRINGE IV (14:39)
[2019-01-03] MEDS: Normal Saline Flush 10 ML SYR IVP (14:39)
[2019-01-10] MEDS: Heparin 500 UNITS/5 ML SYRINGE IV (14:28)
[2019-01-10] MEDS: Proteinase Inhibitor 5 VIAL in EMPTY EVACUATED CONTAINER 1 EACH 100 VIAL IVPB (14:28)
[2019-01-10] MEDS: Normal Saline Flush 10 ML SYR IVP (14:28)
== END 2019-01-19 23:59 | disposition home or self-care (01) ==
LOC: INF 02:01
PROVIDERS: PCP Student in an Organized Health Care Education/Training Program; Visit Provider Nurse Practitioner Family
DX: E88.01 Alpha-1-antitrypsin deficiency (principal)
CPT/HCPCS: 96374; J0257

== ENCOUNTER 2019-02-14 00:48 | Outpatient (RCR) | payer MEDICARE, MEDICAID, SELFPAY ==
[2019-01-24] MEDS: Normal Saline Flush 10 ML SYR IVP (13:26)
[2019-01-24] MEDS: Heparin 500 UNITS/5 ML SYRINGE IV (13:26)
[2019-01-24 13:50] VITALS: BP 106/69; PULSE 98; RESP 24; TEMP 36.5; O2SAT 94
[2019-01-24] MEDS: Proteinase Inhibitor 5 VIAL in EMPTY EVACUATED CONTAINER 1 EACH 100 VIAL IVPB (13:50)
[2019-01-31 14:08] VITALS: BP 106/69; PULSE 98; RESP 24; TEMP 36.5; O2SAT 94
[2019-01-31] MEDS: Proteinase Inhibitor 5 VIAL in EMPTY EVACUATED CONTAINER 1 EACH 100 VIAL IVPB (14:08)
[2019-01-31] MEDS: Heparin 500 UNITS/5 ML SYRINGE IV (14:08)
[2019-01-31] MEDS: Normal Saline Flush 10 ML SYR IVP (14:08)
[2019-02-07] MEDS: Normal Saline Flush 10 ML SYR IVP (14:10)
[2019-02-07] MEDS: Heparin 500 UNITS/5 ML SYRINGE IV (14:10)
[2019-02-07] MEDS: Proteinase Inhibitor 5 VIAL in EMPTY EVACUATED CONTAINER 1 EACH 100 VIAL IVPB (14:10)
[2019-02-14] MEDS: Proteinase Inhibitor 5 VIAL in EMPTY EVACUATED CONTAINER 1 EACH 100 VIAL IVPB (13:57)
[2019-02-14] MEDS: Heparin 500 UNITS/5 ML SYRINGE IV (13:57)
[2019-02-14] MEDS: Normal Saline Flush 10 ML SYR IVP (13:57)
== END 2019-02-19 23:59 | disposition home or self-care (01) ==
LOC: INF 00:48
PROVIDERS: PCP Student in an Organized Health Care Education/Training Program; Visit Provider Nurse Practitioner Family
DX: E88.01 Alpha-1-antitrypsin deficiency (principal)
CPT/HCPCS: 96374; 96523; J0257

== ENCOUNTER 2019-03-19 10:22 | Outpatient (CLI) | payer MEDICARE, MEDICAID, SELFPAY ==
[2019-03-19 11:07] LABS: CREATININE 0.59 mg/dL (0.70-1.30)
[2019-03-19 18:57] LABS: Theophylline 4.5 ug/mL (10.0-20.0)
== END 2019-03-19 10:42 ==
PROVIDERS: PCP Student in an Organized Health Care Education/Training Program; Visit Provider Nurse Practitioner Adult Health
DX: I10 Essential (primary) hypertension (principal); E88.01 Alpha-1-antitrypsin deficiency; J44.9 Chronic obstructive pulmonary disease, unspecified
CPT/HCPCS: 36415; 80198; 82565

== ENCOUNTER 2019-03-21 01:36 | Outpatient (RCR) | payer MEDICARE, MEDICAID, SELFPAY ==
[2019-02-21] MEDS: Proteinase Inhibitor 5 VIAL in EMPTY EVACUATED CONTAINER 1 EACH 100 VIAL IVPB (12:11)
[2019-02-21] MEDS: Heparin 500 UNITS/5 ML SYRINGE IV (12:12)
[2019-02-21] MEDS: Normal Saline Flush 10 ML SYR IVP (12:12)
[2019-02-28] MEDS: Normal Saline Flush 10 ML SYR IVP (14:01)
[2019-02-28] MEDS: Proteinase Inhibitor 5 VIAL in EMPTY EVACUATED CONTAINER 1 EACH 100 VIAL IVPB (14:01)
[2019-02-28] MEDS: Heparin 500 UNITS/5 ML SYRINGE IV (14:01)
[2019-03-07] MEDS: Proteinase Inhibitor 5 VIAL in EMPTY EVACUATED CONTAINER 1 EACH 100 VIAL IVPB (14:20)
[2019-03-07] MEDS: Normal Saline Flush 10 ML SYR IVP (14:36)
[2019-03-07] MEDS: Heparin 500 UNITS/5 ML SYRINGE IV (14:36)
[2019-03-14] MEDS: Proteinase Inhibitor 5 VIAL in EMPTY EVACUATED CONTAINER 1 EACH 100 VIAL IVPB (14:12)
[2019-03-14] MEDS: Normal Saline Flush 10 ML SYR IVP (14:12)
[2019-03-14] MEDS: Heparin 500 UNITS/5 ML SYRINGE IV (14:12)
[2019-03-21] MEDS: Heparin 500 UNITS/5 ML SYRINGE IV (13:47)
[2019-03-21] MEDS: Proteinase Inhibitor 5 VIAL in EMPTY EVACUATED CONTAINER 1 EACH 100 VIAL IVPB (13:47)
[2019-03-21] MEDS: Normal Saline Flush 10 ML SYR IVP (13:47)
== END 2019-03-22 23:59 | disposition home or self-care (01) ==
LOC: INF 01:36
PROVIDERS: PCP Student in an Organized Health Care Education/Training Program; Visit Provider Family Medicine
DX: E88.01 Alpha-1-antitrypsin deficiency (principal)
CPT/HCPCS: 96374; 96523; J0257

== ENCOUNTER 2019-04-18 13:00 | Outpatient (RCR) | payer MEDICARE, MEDICAID, SELFPAY ==
[2019-03-28] MEDS: Proteinase Inhibitor 5 VIAL in EMPTY EVACUATED CONTAINER 1 EACH 100 VIAL IVPB (13:48)
[2019-03-28] MEDS: Normal Saline Flush 10 ML SYR IVP (13:48)
[2019-03-28] MEDS: Heparin 500 UNITS/5 ML SYRINGE (14:46)
[2019-04-04] MEDS: Proteinase Inhibitor 5 VIAL in EMPTY EVACUATED CONTAINER 1 EACH 100 VIAL IVPB (13:59)
[2019-04-04] MEDS: Normal Saline Flush 10 ML SYR IVP (13:59)
[2019-04-04] MEDS: Heparin 500 UNITS/5 ML SYRINGE (14:00)
[2019-04-11] MEDS: Proteinase Inhibitor 5 VIAL in EMPTY EVACUATED CONTAINER 1 EACH 100 VIAL IVPB (14:00)
[2019-04-11] MEDS: Heparin 500 UNITS/5 ML SYRINGE (14:00)
[2019-04-11] MEDS: Normal Saline Flush 10 ML SYR IVP (14:00)
[2019-04-18] MEDS: Proteinase Inhibitor 5 VIAL in EMPTY EVACUATED CONTAINER 1 EACH 100 VIAL IVPB (14:02)
[2019-04-18] MEDS: Heparin 500 UNITS/5 ML SYRINGE (14:02)
[2019-04-18] MEDS: Normal Saline Flush 10 ML SYR IVP (14:02)
== END 2019-04-20 23:59 | disposition home or self-care (01) ==
LOC: INF 13:00
PROVIDERS: PCP Student in an Organized Health Care Education/Training Program; Visit Provider Nurse Practitioner Family
DX: E88.01 Alpha-1-antitrypsin deficiency (principal)
CPT/HCPCS: 96374; 96523; J0257

== ENCOUNTER 2019-05-16 01:16 | Outpatient (RCR) | payer MEDICARE, MEDICAID, SELFPAY ==
[2019-04-26] MEDS: Proteinase Inhibitor 5 VIAL in EMPTY EVACUATED CONTAINER 1 EACH 100 VIAL IVPB (14:12)
[2019-04-26] MEDS: Normal Saline Flush 10 ML SYR IVP (14:12)
[2019-04-26] MEDS: Heparin 500 UNITS/5 ML SYRINGE IV (14:13)
[2019-05-03] MEDS: Normal Saline Flush 10 ML SYR IVP (14:06)
[2019-05-03] MEDS: Proteinase Inhibitor 5 VIAL in EMPTY EVACUATED CONTAINER 1 EACH 100 VIAL IVPB (14:06)
[2019-05-03] MEDS: Heparin 500 UNITS/5 ML SYRINGE IV (14:07)
[2019-05-09] MEDS: Normal Saline Flush 10 ML SYR IVP (14:09)
[2019-05-09] MEDS: Proteinase Inhibitor 5 VIAL in EMPTY EVACUATED CONTAINER 1 EACH 100 VIAL IVPB (14:09)
[2019-05-09] MEDS: Heparin 500 UNITS/5 ML SYRINGE IV (14:09)
[2019-05-16] MEDS: Proteinase Inhibitor 5 VIAL in EMPTY EVACUATED CONTAINER 1 EACH 100 VIAL IVPB (14:02)
[2019-05-16] MEDS: Normal Saline Flush 10 ML SYR IVP (14:02)
[2019-05-16] MEDS: Heparin 500 UNITS/5 ML SYRINGE IV (14:02)
== END 2019-05-21 23:59 | disposition home or self-care (01) ==
LOC: INF 01:16
PROVIDERS: PCP Student in an Organized Health Care Education/Training Program; Visit Provider Family Medicine
DX: E88.01 Alpha-1-antitrypsin deficiency (principal)
CPT/HCPCS: 96374; J0257

== ENCOUNTER 2019-06-20 01:01 | Outpatient (RCR) | payer MEDICARE, MEDICAID, SELFPAY ==
[2019-05-24] MEDS: Heparin 500 UNITS/5 ML SYRINGE IV (13:35)
[2019-05-24] MEDS: Proteinase Inhibitor 5 VIAL in EMPTY EVACUATED CONTAINER 1 EACH 100 VIAL IVPB (13:35)
[2019-05-24] MEDS: Normal Saline Flush 10 ML SYR IVP (13:35)
[2019-05-30] MEDS: Proteinase Inhibitor 5 VIAL in EMPTY EVACUATED CONTAINER 1 EACH 100 VIAL IVPB (13:50)
[2019-05-30] MEDS: Normal Saline Flush 10 ML SYR IVP (14:23)
[2019-05-30] MEDS: Heparin 500 UNITS/5 ML SYRINGE IV (14:24)
[2019-06-06] MEDS: Normal Saline Flush 10 ML SYR IVP (13:55)
[2019-06-06] MEDS: Heparin 500 UNITS/5 ML SYRINGE IV (13:56)
[2019-06-06] MEDS: Proteinase Inhibitor 5 VIAL in EMPTY EVACUATED CONTAINER 1 EACH 100 VIAL IVPB (13:56)
[2019-06-13] MEDS: Proteinase Inhibitor 5 VIAL in EMPTY EVACUATED CONTAINER 1 EACH 100 VIAL IVPB (13:45)
[2019-06-13] MEDS: Normal Saline Flush 10 ML SYR IVP (14:11)
[2019-06-13] MEDS: Heparin 500 UNITS/5 ML SYRINGE IV (14:12)
[2019-06-20] MEDS: Proteinase Inhibitor 5 VIAL in EMPTY EVACUATED CONTAINER 1 EACH 100 VIAL IVPB (13:45)
[2019-06-20] MEDS: Normal Saline Flush 10 ML SYR IVP (14:30)
[2019-06-20] MEDS: Heparin 500 UNITS/5 ML SYRINGE IV (14:30)
== END 2019-06-20 23:59 | disposition home or self-care (01) ==
LOC: INF 01:01
PROVIDERS: PCP Student in an Organized Health Care Education/Training Program; Visit Provider Family Medicine
DX: J44.9 Chronic obstructive pulmonary disease, unspecified (principal); E88.01 Alpha-1-antitrypsin deficiency
CPT/HCPCS: 96374; 96523; J0257

== ENCOUNTER 2019-07-05 17:05 | Outpatient (REF) | payer MEDICARE, MEDICAID, SELFPAY ==
[2019-07-07 07:15] LABS: COVID-19 RT-PCR Result NEGATIVE (Negative)
== END 2019-07-05 17:25 ==
LOC: LBN 17:05
PROVIDERS: PCP Student in an Organized Health Care Education/Training Program; Visit Provider Nurse Practitioner Adult Health
DX: Z20.828 Contact with and (suspected) exposure to other viral communicable diseases (principal)
CPT/HCPCS: U0003

== ENCOUNTER 2019-07-10 19:06 | Outpatient (REF) | payer MEDICARE, MEDICAID, SELFPAY ==
[2019-07-11 22:02] LABS: COVID-19 RT-PCR UVMMC Result Negative (Negative)
== END 2019-07-10 19:26 ==
LOC: LBN 19:06
PROVIDERS: PCP Student in an Organized Health Care Education/Training Program; Visit Provider Nurse Practitioner Adult Health
DX: Z20.828 Contact with and (suspected) exposure to other viral communicable diseases (principal)
CPT/HCPCS: U0003

== ENCOUNTER 2019-07-17 16:56 | Outpatient (REF) | payer MEDICARE, MEDICAID, SELFPAY ==
[2019-07-18 00:41] LABS: COVID-19 RT-PCR UVMMC Result Negative (Negative)
== END 2019-07-17 17:16 ==
LOC: LBN 16:56
PROVIDERS: PCP Student in an Organized Health Care Education/Training Program; Visit Provider Nurse Practitioner Adult Health
DX: Z03.818 Encounter for observation for suspected exposure to other biological agents ruled out (principal)
CPT/HCPCS: U0003

== ENCOUNTER 2019-07-18 02:59 | Outpatient (RCR) | payer MEDICARE, MEDICAID, SELFPAY ==
[2019-06-27] MEDS: Proteinase Inhibitor 5 VIAL in EMPTY EVACUATED CONTAINER 1 EACH 100 VIAL IVPB (13:45)
[2019-06-27] MEDS: Normal Saline Flush 10 ML SYR IVP (13:50)
[2019-06-27] MEDS: Heparin 500 UNITS/5 ML SYRINGE IV (13:50)
[2019-07-04] MEDS: Proteinase Inhibitor 5 VIAL in EMPTY EVACUATED CONTAINER 1 EACH 100 VIAL IVPB (13:50)
[2019-07-04] MEDS: Normal Saline Flush 10 ML SYR IVP (14:10)
[2019-07-04] MEDS: Heparin 500 UNITS/5 ML SYRINGE IV (14:10)
[2019-07-11] MEDS: Normal Saline Flush 10 ML SYR IVP (14:02)
[2019-07-11] MEDS: Heparin 500 UNITS/5 ML SYRINGE IV (14:03)
[2019-07-18] MEDS: Heparin 500 UNITS/5 ML SYRINGE IV (14:20)
[2019-07-18] MEDS: Normal Saline Flush 10 ML SYR IVP (14:20)
== END 2019-07-21 23:59 | disposition home or self-care (01) ==
LOC: INF 02:59
PROVIDERS: PCP Student in an Organized Health Care Education/Training Program; Visit Provider Family Medicine
DX: J44.9 Chronic obstructive pulmonary disease, unspecified (principal); E88.01 Alpha-1-antitrypsin deficiency; Z45.2 Encounter for adjustment and management of vascular access device
CPT/HCPCS: 96374; J0257

== ENCOUNTER 2019-07-23 16:33 | Outpatient (REF) | payer MEDICARE, MEDICAID, SELFPAY ==
[2019-07-23 16:22] LABS: Anion Gap -0.6 mmol/L (3-11); BUN 12 mg/dL (7-18); CO2 39.6 mmol/L (21.0-32.0); CREATININE 0.56 mg/dL (0.70-1.30); Calcium 8.8 mg/dL (8.5-10.1); Chloride 97 mmol/L (98-107); Glucose 103 mg/dL (74-106); Sodium 136 mmol/L (136-145)
== END 2019-07-23 16:53 ==
LOC: LBN 16:33
PROVIDERS: PCP Student in an Organized Health Care Education/Training Program; Visit Provider Nurse Practitioner Adult Health
DX: E88.01 Alpha-1-antitrypsin deficiency (principal); E78.5 Hyperlipidemia, unspecified
CPT/HCPCS: 80048

== ENCOUNTER 2019-07-24 18:01 | Outpatient (REF) | payer MEDICARE, MEDICAID, SELFPAY ==
[2019-07-25 18:17] LABS: COVID-19 RT-PCR Result Not Detected ((See Note))
== END 2019-07-24 18:21 ==
LOC: LBN 18:01
PROVIDERS: PCP Student in an Organized Health Care Education/Training Program; Visit Provider Nurse Practitioner Adult Health
DX: Z11.59 Encounter for screening for other viral diseases (principal)
CPT/HCPCS: U0003

== ENCOUNTER 2019-07-31 20:42 | Outpatient (REF) | payer MEDICARE, MEDICAID, SELFPAY ==
[2019-08-05 12:05] LABS: COVID-19 RT-PCR UVMMC Result Negative (Negative)
== END 2019-07-31 21:02 ==
LOC: LBN 20:42
PROVIDERS: PCP Student in an Organized Health Care Education/Training Program; Visit Provider Nurse Practitioner Adult Health
DX: Z03.818 Encounter for observation for suspected exposure to other biological agents ruled out (principal)
CPT/HCPCS: U0003

== ENCOUNTER 2019-08-07 14:44 | Outpatient (REF) | payer MEDICARE, MEDICAID, SELFPAY ==
[2019-08-08 17:59] LABS: COVID-19 RT-PCR Result Not Detected ((See Note))
== END 2019-08-07 15:04 ==
LOC: LBN 14:44
PROVIDERS: PCP Student in an Organized Health Care Education/Training Program; Visit Provider Nurse Practitioner Adult Health
DX: Z03.818 Encounter for observation for suspected exposure to other biological agents ruled out (principal)
CPT/HCPCS: U0003

== ENCOUNTER 2019-08-14 20:55 | Outpatient (REF) | payer MEDICARE, MEDICAID, SELFPAY ==
[2019-08-16 15:27] LABS: COVID-19 RT-PCR Result Not Detected ((See Note))
== END 2019-08-14 21:15 ==
LOC: LBN 20:55
PROVIDERS: PCP Student in an Organized Health Care Education/Training Program; Visit Provider Nurse Practitioner Adult Health
DX: Z03.818 Encounter for observation for suspected exposure to other biological agents ruled out (principal)
CPT/HCPCS: U0003

== ENCOUNTER 2019-08-15 02:00 | Outpatient (RCR) | payer MEDICARE, MEDICAID, SELFPAY ==
[2019-07-25] MEDS: Heparin 500 UNITS/5 ML SYRINGE (14:00)
[2019-07-25] MEDS: Normal Saline Flush 10 ML SYR IVP (14:00)
[2019-08-08] MEDS: Normal Saline Flush 10 ML SYR IVP (14:05)
[2019-08-08] MEDS: Heparin 500 UNITS/5 ML SYRINGE (14:06)
[2019-08-15] MEDS: Heparin 500 UNITS/5 ML SYRINGE (14:11)
[2019-08-15] MEDS: Normal Saline Flush 10 ML SYR IVP (14:11)
== END 2019-08-20 23:59 | disposition home or self-care (01) ==
LOC: INF 02:00
PROVIDERS: PCP Student in an Organized Health Care Education/Training Program; Visit Provider Family Medicine
DX: E88.01 Alpha-1-antitrypsin deficiency (principal)
CPT/HCPCS: 96365; 96374; J0257

== ENCOUNTER 2019-08-21 13:21 | Outpatient (REF) | payer MEDICARE, MEDICAID, SELFPAY ==
[2019-08-22 18:08] LABS: COVID-19 RT-PCR Result Not Detected ((See Note))
== END 2019-08-21 13:41 ==
LOC: LBN 13:21
PROVIDERS: PCP Student in an Organized Health Care Education/Training Program; Visit Provider Nurse Practitioner Adult Health
DX: Z03.818 Encounter for observation for suspected exposure to other biological agents ruled out (principal)
CPT/HCPCS: U0003

== ENCOUNTER 2019-08-28 16:58 | Outpatient (REF) | payer MEDICARE, MEDICAID, SELFPAY ==
[2019-08-29 17:30] LABS: COVID-19 RT-PCR Result Not Detected ((See Note))
== END 2019-08-28 17:18 ==
LOC: LBN 16:58
PROVIDERS: PCP Student in an Organized Health Care Education/Training Program; Visit Provider Nurse Practitioner Adult Health
DX: Z03.818 Encounter for observation for suspected exposure to other biological agents ruled out (principal)
CPT/HCPCS: U0003

== ENCOUNTER 2019-09-04 18:51 | Outpatient (REF) | payer MEDICARE, MEDICAID, SELFPAY ==
[2019-09-06 20:09] LABS: COVID-19 RT-PCR Result Not Detected ((See Note))
== END 2019-09-04 19:11 ==
LOC: LBN 18:51
PROVIDERS: PCP Student in an Organized Health Care Education/Training Program; Visit Provider Nurse Practitioner Adult Health
DX: Z11.59 Encounter for screening for other viral diseases (principal)
CPT/HCPCS: U0003

== ENCOUNTER 2019-09-11 17:22 | Outpatient (REF) | payer MEDICARE, MEDICAID, SELFPAY ==
[2019-09-12 18:08] LABS: COVID-19 RT-PCR Result Not Detected ((See Note))
== END 2019-09-11 17:42 ==
LOC: LBN 17:22
PROVIDERS: PCP Student in an Organized Health Care Education/Training Program; Visit Provider Nurse Practitioner Adult Health
DX: Z03.818 Encounter for observation for suspected exposure to other biological agents ruled out (principal)
CPT/HCPCS: U0003

== ENCOUNTER 2019-09-17 12:30 | Outpatient (REF) | payer MEDICARE, MEDICAID, SELFPAY | END 2019-09-17 12:50 | LOC: LBN 12:30 | PROVIDERS: PCP Student in an Organized Health Care Education/Training Program; Visit Provider Nurse Practitioner Adult Health | DX: J44.9 Chronic obstructive pulmonary disease, unspecified (principal) | CPT/HCPCS: 80198 ==

== ENCOUNTER 2019-09-18 11:20 | Outpatient (REF) | payer MEDICARE, MEDICAID, SELFPAY ==
[2019-09-19 17:37] LABS: COVID-19 RT-PCR Result Not Detected ((See Note))
== END 2019-09-18 11:40 ==
LOC: LBN 11:20
PROVIDERS: PCP Student in an Organized Health Care Education/Training Program; Visit Provider Nurse Practitioner Adult Health
DX: Z03.818 Encounter for observation for suspected exposure to other biological agents ruled out (principal)
CPT/HCPCS: U0003

== ENCOUNTER 2019-09-19 01:55 | Outpatient (RCR) | payer MEDICARE, MEDICAID, SELFPAY ==
[2019-08-22] MEDS: Normal Saline Flush 10 ML SYR IVP (13:55)
[2019-08-22] MEDS: Heparin 500 UNITS/5 ML SYRINGE (13:55)
[2019-08-28] MEDS: Heparin 500 UNITS/5 ML SYRINGE IV (10:21)
[2019-08-28] MEDS: Normal Saline Flush 10 ML SYR IVP (10:21)
[2019-09-05] MEDS: Normal Saline Flush 10 ML SYR IVP (14:03)
[2019-09-05] MEDS: Heparin 500 UNITS/5 ML SYRINGE IV (14:03)
[2019-09-12] MEDS: Heparin 500 UNITS/5 ML SYRINGE IV (14:15)
[2019-09-12] MEDS: Normal Saline Flush 10 ML SYR IVP (14:37)
[2019-09-19] MEDS: Heparin 500 UNITS/5 ML SYRINGE IV (13:40)
[2019-09-19] MEDS: Normal Saline Flush 10 ML SYR IVP (13:40)
== END 2019-09-20 23:59 | disposition home or self-care (01) ==
LOC: INF 01:55
PROVIDERS: PCP Student in an Organized Health Care Education/Training Program; Visit Provider Family Medicine
DX: J44.9 Chronic obstructive pulmonary disease, unspecified (principal); E88.01 Alpha-1-antitrypsin deficiency
CPT/HCPCS: 96365; 96374; 96523; J0257

== ENCOUNTER 2019-09-25 14:03 | Outpatient (REF) | payer MEDICARE, MEDICAID, SELFPAY ==
[2019-09-27 14:40] LABS: COVID-19 RT-PCR Result NEGATIVE (Negative)
== END 2019-09-25 14:23 ==
LOC: LBN 14:03
PROVIDERS: PCP Student in an Organized Health Care Education/Training Program; Visit Provider Nurse Practitioner Adult Health
DX: Z11.59 Encounter for screening for other viral diseases (principal)
CPT/HCPCS: U0003

== ENCOUNTER 2019-10-09 14:58 | Outpatient (REF) | payer MEDICARE, MEDICAID, SELFPAY ==
[2019-10-10 16:50] LABS: COVID-19 RT-PCR Result Not Detected ((See Note))
== END 2019-10-09 15:18 ==
LOC: LBN 14:58
PROVIDERS: PCP Student in an Organized Health Care Education/Training Program; Visit Provider Nurse Practitioner Adult Health
DX: Z11.59 Encounter for screening for other viral diseases (principal)
CPT/HCPCS: U0003

== ENCOUNTER 2019-10-16 12:24 | Outpatient (REF) | payer MEDICARE, MEDICAID, SELFPAY ==
[2019-10-17 17:08] LABS: COVID-19 RT-PCR Result Not Detected ((See Note))
== END 2019-10-16 12:44 ==
LOC: LBN 12:24
PROVIDERS: PCP Student in an Organized Health Care Education/Training Program; Visit Provider Nurse Practitioner Adult Health
DX: Z11.59 Encounter for screening for other viral diseases (principal)
CPT/HCPCS: U0003

== ENCOUNTER 2019-10-17 03:52 | Outpatient (RCR) | payer MEDICARE, MEDICAID, SELFPAY ==
[2019-09-26] MEDS: Heparin 500 UNITS/5 ML SYRINGE IV (14:00)
[2019-09-26] MEDS: Normal Saline Flush 10 ML SYR IVP (14:00)
[2019-10-04] MEDS: Heparin 500 UNITS/5 ML SYRINGE IV (13:09)
[2019-10-04] MEDS: Normal Saline Flush 10 ML SYR IVP (13:09)
[2019-10-10] MEDS: Normal Saline Flush 10 ML SYR IVP (14:12)
[2019-10-10] MEDS: Heparin 500 UNITS/5 ML SYRINGE IV (14:12)
[2019-10-17] MEDS: Normal Saline Flush 10 ML SYR IVP (14:17)
[2019-10-17] MEDS: Heparin 500 UNITS/5 ML SYRINGE IV (14:17)
== END 2019-10-21 23:59 | disposition home or self-care (01) ==
LOC: INF 03:52
PROVIDERS: PCP Student in an Organized Health Care Education/Training Program; Visit Provider Family Medicine
DX: E88.01 Alpha-1-antitrypsin deficiency (principal); J44.9 Chronic obstructive pulmonary disease, unspecified; Z45.2 Encounter for adjustment and management of vascular access device
CPT/HCPCS: 96374; J0257

== ENCOUNTER 2019-10-23 16:38 | Outpatient (REF) | payer MEDICARE, MEDICAID, SELFPAY ==
[2019-10-24 16:17] LABS: COVID-19 RT-PCR Result Not Detected ((See Note))
== END 2019-10-23 16:58 ==
LOC: LBN 16:38
PROVIDERS: PCP Student in an Organized Health Care Education/Training Program; Visit Provider Nurse Practitioner Adult Health
DX: Z11.59 Encounter for screening for other viral diseases (principal)
CPT/HCPCS: U0003

== ENCOUNTER 2019-11-06 14:45 | Outpatient (REF) | payer MEDICARE, MEDICAID, SELFPAY ==
[2019-11-07 23:28] LABS: COVID-19 RT-PCR Result NEGATIVE (Negative)
== END 2019-11-06 15:05 ==
LOC: LBN 14:45
PROVIDERS: PCP Student in an Organized Health Care Education/Training Program; Visit Provider Nurse Practitioner Adult Health
DX: Z11.59 Encounter for screening for other viral diseases (principal)
CPT/HCPCS: U0003

== ENCOUNTER 2019-11-14 02:11 | Outpatient (RCR) | payer MEDICARE, MEDICAID, SELFPAY ==
[2019-10-24] MEDS: Normal Saline Flush 10 ML SYR IVP (14:29)
[2019-10-24] MEDS: Heparin 500 UNITS/5 ML SYRINGE IV (14:30)
[2019-10-31] MEDS: Normal Saline Flush 10 ML SYR IVP (14:13)
[2019-10-31] MEDS: Heparin 500 UNITS/5 ML SYRINGE IV (14:13)
[2019-11-07] MEDS: Normal Saline Flush 10 ML SYR IVP (14:15)
[2019-11-07] MEDS: Heparin 500 UNITS/5 ML SYRINGE IV (14:15)
[2019-11-14] MEDS: Heparin 500 UNITS/5 ML SYRINGE IV (14:23)
[2019-11-14] MEDS: Normal Saline Flush 10 ML SYR IVP (14:23)
== END 2019-11-20 23:59 | disposition home or self-care (01) ==
LOC: INF 02:11
PROVIDERS: PCP Student in an Organized Health Care Education/Training Program; Visit Provider Family Medicine
DX: E88.01 Alpha-1-antitrypsin deficiency (principal); J44.9 Chronic obstructive pulmonary disease, unspecified
CPT/HCPCS: 96365; 96374; J0257

== ENCOUNTER 2019-12-11 18:05 | Outpatient (REF) | payer MEDICARE, MEDICAID, SELFPAY ==
[2019-12-12 17:17] LABS: COVID-19 RT-PCR Result Not Detected ((See Note))
== END 2019-12-11 18:25 ==
LOC: LBN 18:05
PROVIDERS: PCP Student in an Organized Health Care Education/Training Program; Referring Provider Nurse Practitioner Adult Health; Visit Provider Nurse Practitioner Adult Health
DX: R50.9 Fever, unspecified (principal)
CPT/HCPCS: U0003

== ENCOUNTER 2019-12-14 17:11 | Outpatient (REF) | payer MEDICARE, MEDICAID, SELFPAY | END 2019-12-14 17:31 | LOC: LBN 17:11 | PROVIDERS: PCP Student in an Organized Health Care Education/Training Program; Visit Provider Family Medicine | DX: E88.01 Alpha-1-antitrypsin deficiency (principal); I10 Essential (primary) hypertension | CPT/HCPCS: 80048 ==

== ENCOUNTER 2019-12-18 15:52 | Outpatient (REF) | payer MEDICARE, MEDICAID, SELFPAY ==
[2019-12-23 11:17] LABS: COVID-19 RT-PCR Result Not Detected
== END 2019-12-18 16:12 ==
LOC: LBN 15:52
PROVIDERS: PCP Student in an Organized Health Care Education/Training Program; Visit Provider Nurse Practitioner Adult Health
DX: Z11.59 Encounter for screening for other viral diseases (principal)
CPT/HCPCS: U0003

== ENCOUNTER 2019-12-19 01:37 | Outpatient (RCR) | payer MEDICARE, MEDICAID, SELFPAY ==
[2019-11-21] MEDS: Heparin 500 UNITS/5 ML SYRINGE (14:13)
[2019-11-21] MEDS: Normal Saline Flush 10 ML SYR IVP (14:13)
[2019-11-28] MEDS: Normal Saline Flush 10 ML SYR IVP (14:15)
[2019-11-28] MEDS: Heparin 500 UNITS/5 ML SYRINGE (14:16)
[2019-12-05] MEDS: Normal Saline Flush 10 ML SYR IVP (14:40)
[2019-12-05] MEDS: Heparin 500 UNITS/5 ML SYRINGE (14:41)
[2019-12-12] MEDS: Normal Saline Flush 10 ML SYR IVP (14:15)
[2019-12-12] MEDS: Heparin 500 UNITS/5 ML SYRINGE (14:16)
[2019-12-19] MEDS: Normal Saline Flush 10 ML SYR IVP (14:18)
[2019-12-19] MEDS: Heparin 500 UNITS/5 ML SYRINGE IV (14:18)
== END 2019-12-21 23:59 | disposition home or self-care (01) ==
LOC: INF 01:37
PROVIDERS: PCP Student in an Organized Health Care Education/Training Program; Visit Provider Family Medicine
DX: E88.01 Alpha-1-antitrypsin deficiency (principal); J44.9 Chronic obstructive pulmonary disease, unspecified
CPT/HCPCS: 96365; 96374; 96375; J0257

== ENCOUNTER 2019-12-25 18:16 | Outpatient (REF) | payer MEDICARE, MEDICAID, SELFPAY ==
[2019-12-28 13:25] LABS: SARS-CoV-2 RNA Not Detected (NotDetected); SARS-CoV-2 RNA Source Nasal/Nares
== END 2019-12-25 18:36 ==
LOC: LBN 18:16
PROVIDERS: PCP Student in an Organized Health Care Education/Training Program; Visit Provider Nurse Practitioner Adult Health
DX: Z11.59 Encounter for screening for other viral diseases (principal)
CPT/HCPCS: U0003

== ENCOUNTER 2019-12-30 12:31 | Outpatient (REF) | payer MEDICARE, MEDICAID, SELFPAY ==
[2020-01-01 12:04] LABS: SARS-CoV-2 RNA Not Detected (NotDetected); SARS-CoV-2 RNA Source Nasal/Nares
== END 2019-12-30 12:51 ==
LOC: LBN 12:31
PROVIDERS: PCP Student in an Organized Health Care Education/Training Program; Visit Provider Nurse Practitioner Adult Health
DX: Z11.59 Encounter for screening for other viral diseases (principal)
CPT/HCPCS: U0003

== ENCOUNTER 2020-01-08 14:55 | Outpatient (REF) | payer MEDICARE, MEDICAID, SELFPAY ==
[2020-01-10 22:09] LABS: SARS-CoV-2 RNA Not Detected (NotDetected); SARS-CoV-2 RNA Source Nasal/Nares
== END 2020-01-08 15:15 ==
LOC: LBN 14:55
PROVIDERS: PCP Student in an Organized Health Care Education/Training Program; Visit Provider Nurse Practitioner Adult Health
DX: Z11.59 Encounter for screening for other viral diseases (principal)
CPT/HCPCS: U0003

== ENCOUNTER 2020-01-15 11:00 | Outpatient (RCR) | payer MEDICARE, MEDICAID, SELFPAY ==
[2019-12-26] MEDS: Heparin 500 UNITS/5 ML SYRINGE IV (14:13)
[2019-12-26] MEDS: Normal Saline Flush 10 ML SYR IVP (14:13)
[2020-01-02] MEDS: Normal Saline Flush 10 ML SYR IVP (14:03)
[2020-01-02] MEDS: Heparin 500 UNITS/5 ML SYRINGE IV (14:03)
[2020-01-09] MEDS: Normal Saline Flush 10 ML SYR IVP (13:36)
[2020-01-09] MEDS: Heparin 500 UNITS/5 ML SYRINGE IV (13:36)
[2020-01-15] MEDS: Normal Saline Flush 10 ML SYR IVP (11:54)
[2020-01-15] MEDS: Heparin 500 UNITS/5 ML SYRINGE IV (11:55)
== END 2020-01-20 23:59 | disposition home or self-care (01) ==
LOC: INF 11:00
PROVIDERS: PCP Student in an Organized Health Care Education/Training Program; Visit Provider Family Medicine
DX: E88.01 Alpha-1-antitrypsin deficiency (principal); J44.9 Chronic obstructive pulmonary disease, unspecified
CPT/HCPCS: 96374; J0257

== ENCOUNTER 2020-01-15 15:17 | Outpatient (REF) | payer MEDICARE, MEDICAID, SELFPAY ==
[2020-01-19 09:10] LABS: SARS-CoV-2 RNA Not Detected (NotDetected); SARS-CoV-2 RNA Source Nasal/Nares
== END 2020-01-15 15:37 ==
LOC: LBN 15:17
PROVIDERS: Nurse Practitioner Adult Health; PCP Student in an Organized Health Care Education/Training Program; Visit Provider Surgery
DX: Z11.59 Encounter for screening for other viral diseases (principal)
CPT/HCPCS: U0003

== ENCOUNTER 2020-01-29 17:12 | Outpatient (REF) | payer MEDICARE, MEDICAID, SELFPAY ==
[2020-01-30 17:48] LABS: COVID-19 RT-PCR Result Not Detected ((See Note))
== END 2020-01-29 17:32 ==
LOC: LBN 17:12
PROVIDERS: PCP Student in an Organized Health Care Education/Training Program; Visit Provider Nurse Practitioner Adult Health
DX: Z11.59 Encounter for screening for other viral diseases (principal)
CPT/HCPCS: U0003

== ENCOUNTER 2020-02-06 20:36 | Outpatient (REF) | payer MEDICARE, MEDICAID, SELFPAY ==
[2020-02-11 11:14] LABS: COVID-19 RT-PCR Result Not detected
== END 2020-02-06 20:56 ==
LOC: LBN 20:36
PROVIDERS: PCP Student in an Organized Health Care Education/Training Program; Visit Provider Nurse Practitioner Adult Health
DX: Z11.59 Encounter for screening for other viral diseases (principal)
CPT/HCPCS: U0003

== ENCOUNTER 2020-02-19 02:13 | Outpatient (RCR) | payer MEDICARE, MEDICAID, SELFPAY ==
[2020-01-23] MEDS: Heparin 500 UNITS/5 ML SYRINGE IV (14:13)
[2020-01-23] MEDS: Normal Saline Flush 10 ML SYR IVP (14:13)
[2020-01-30] MEDS: Heparin 500 UNITS/5 ML SYRINGE IV (14:24)
[2020-01-30] MEDS: Normal Saline Flush 10 ML SYR IVP (14:24)
[2020-02-06] MEDS: Normal Saline Flush 10 ML SYR IVP (13:50)
[2020-02-06] MEDS: Heparin 500 UNITS/5 ML SYRINGE IV (13:50)
[2020-02-12] MEDS: Normal Saline Flush 10 ML SYR IVP (14:18)
[2020-02-12] MEDS: Heparin 500 UNITS/5 ML SYRINGE IV (14:19)
== END 2020-02-20 23:59 | disposition home or self-care (01) ==
LOC: INF 02:13
PROVIDERS: PCP Student in an Organized Health Care Education/Training Program; Visit Provider Family Medicine
DX: E88.01 Alpha-1-antitrypsin deficiency (principal); J44.9 Chronic obstructive pulmonary disease, unspecified
CPT/HCPCS: 96365; 96374; 96523; U0003; J0257

== ENCOUNTER 2020-02-19 16:27 | Outpatient (REF) | payer MEDICARE, MEDICAID, SELFPAY ==
[2020-02-20 01:26] LABS: COVID-19 RT-PCR UVMMC Result Negative (Negative)
== END 2020-02-19 16:47 ==
LOC: LBN 16:27
PROVIDERS: PCP Student in an Organized Health Care Education/Training Program; Visit Provider Nurse Practitioner Adult Health
DX: Z11.59 Encounter for screening for other viral diseases (principal)
CPT/HCPCS: U0003

== ENCOUNTER 2020-02-28 20:34 | Outpatient (REF) | payer MEDICARE, MEDICAID, SELFPAY ==
[2020-02-29 17:30] LABS: COVID-19 RT-PCR Result Not Detected ((See Note))
== END 2020-02-28 20:54 ==
LOC: LBN 20:34
PROVIDERS: PCP Student in an Organized Health Care Education/Training Program; Visit Provider Nurse Practitioner Adult Health
DX: Z11.59 Encounter for screening for other viral diseases (principal)
CPT/HCPCS: U0003

== ENCOUNTER 2020-03-04 16:01 | Outpatient (REF) | payer MEDICARE, MEDICAID, SELFPAY ==
[2020-03-05 16:47] LABS: COVID-19 RT-PCR Result Not Detected ((See Note))
== END 2020-03-04 16:21 ==
LOC: LBN 16:01
PROVIDERS: PCP Student in an Organized Health Care Education/Training Program; Visit Provider Nurse Practitioner Adult Health
DX: Z11.52 Encounter for screening for COVID-19 (principal)
CPT/HCPCS: U0003

== ENCOUNTER 2020-03-11 17:47 | Outpatient (REF) | payer MEDICARE, MEDICAID, SELFPAY ==
[2020-03-13 16:56] LABS: COVID-19 RT-PCR Result Not Detected ((See Note))
== END 2020-03-11 18:07 ==
LOC: LBN 17:47
PROVIDERS: PCP Student in an Organized Health Care Education/Training Program; Visit Provider Nurse Practitioner Adult Health
DX: Z11.52 Encounter for screening for COVID-19 (principal)
CPT/HCPCS: U0003

== ENCOUNTER 2020-03-18 19:06 | Outpatient (REF) | payer MEDICARE, MEDICAID, SELFPAY ==
[2020-03-20 09:08] LABS: COVID-19 RT-PCR Result Not Detected ((See Note))
== END 2020-03-18 19:26 ==
LOC: LBN 19:06
PROVIDERS: PCP Student in an Organized Health Care Education/Training Program; Visit Provider Nurse Practitioner Adult Health
DX: Z11.52 Encounter for screening for COVID-19 (principal)
CPT/HCPCS: U0003

== ENCOUNTER 2020-03-19 02:24 | Outpatient (RCR) | payer MEDICARE, MEDICAID, SELFPAY ==
[2020-02-27] MEDS: Normal Saline Flush 10 ML SYR IVP (13:50)
[2020-02-27] MEDS: Heparin 500 UNITS/5 ML SYRINGE IV (13:50)
[2020-03-05] MEDS: Heparin 500 UNITS/5 ML SYRINGE IV ×2 (13:51→14:11)
[2020-03-05] MEDS: Normal Saline Flush 10 ML SYR IVP ×2 (13:51→14:11)
[2020-03-12] MEDS: Heparin 500 UNITS/5 ML SYRINGE IV (13:45)
[2020-03-12] MEDS: Normal Saline Flush 10 ML SYR IVP (13:45)
[2020-03-19] MEDS: Normal Saline Flush 10 ML SYR IVP (13:46)
[2020-03-19] MEDS: Heparin 500 UNITS/5 ML SYRINGE IV (13:46)
== END 2020-03-22 23:59 | disposition home or self-care (01) ==
LOC: INF 02:24
PROVIDERS: PCP Student in an Organized Health Care Education/Training Program; Visit Provider Family Medicine
DX: E88.01 Alpha-1-antitrypsin deficiency (principal); J44.9 Chronic obstructive pulmonary disease, unspecified
CPT/HCPCS: 96374; J0257

== ENCOUNTER 2020-03-25 19:16 | Outpatient (REF) | payer MEDICARE, MEDICAID, SELFPAY ==
[2020-03-26 14:58] LABS: COVID-19 RT-PCR Result Not Detected ((See Note))
== END 2020-03-25 19:17 | disposition home or self-care (01) ==
LOC: LBN 19:16
PROVIDERS: PCP Student in an Organized Health Care Education/Training Program; Visit Provider Nurse Practitioner Adult Health
DX: Z11.52 Encounter for screening for COVID-19 (principal)
CPT/HCPCS: U0003; U0005

== ENCOUNTER 2020-04-01 22:39 | Outpatient (REF) | payer MEDICARE, MEDICAID, SELFPAY ==
[2020-04-02 16:29] LABS: COVID-19 RT-PCR Result Not Detected ((See Note))
== END 2020-04-01 22:40 | disposition home or self-care (01) ==
LOC: LBN 22:39
PROVIDERS: PCP Student in an Organized Health Care Education/Training Program; Visit Provider Nurse Practitioner Adult Health
DX: Z20.822 Contact with and (suspected) exposure to COVID-19 (principal)
CPT/HCPCS: U0003; U0005

== ENCOUNTER 2020-04-15 13:00 | Outpatient (RCR) | payer MEDICARE, MEDICAID, SELFPAY ==
[2020-03-26] MEDS: Normal Saline Flush 10 ML SYR IVP (13:42)
[2020-03-26] MEDS: Heparin 500 UNITS/5 ML SYRINGE IV (13:42)
[2020-04-02] MEDS: Heparin 500 UNITS/5 ML SYRINGE IV (14:08)
[2020-04-02] MEDS: Normal Saline Flush 10 ML SYR IVP (14:08)
[2020-04-09] MEDS: Heparin 500 UNITS/5 ML SYRINGE IV (13:58)
[2020-04-09] MEDS: Normal Saline Flush 10 ML SYR IVP (13:58)
[2020-04-15] MEDS: Heparin 500 UNITS/5 ML SYRINGE IV (14:27)
[2020-04-15] MEDS: Normal Saline Flush 10 ML SYR IVP (14:27)
== END 2020-04-19 23:59 | disposition home or self-care (01) ==
LOC: INF 13:00
PROVIDERS: PCP Student in an Organized Health Care Education/Training Program; Visit Provider Family Medicine
DX: E88.01 Alpha-1-antitrypsin deficiency (principal); J44.9 Chronic obstructive pulmonary disease, unspecified
CPT/HCPCS: 96374; 96523; J0257

== ENCOUNTER 2020-04-15 15:16 | Outpatient (REF) | payer MEDICARE, MEDICAID, SELFPAY ==
[2020-04-16 13:27] LABS: COVID-19 RT-PCR Result Not Detected ((See Note))
== END 2020-04-15 15:17 | disposition home or self-care (01) ==
LOC: LBN 15:16
PROVIDERS: PCP Student in an Organized Health Care Education/Training Program; Visit Provider Nurse Practitioner Adult Health
DX: Z20.822 Contact with and (suspected) exposure to COVID-19 (principal)
CPT/HCPCS: U0003; U0005

== ENCOUNTER 2020-04-22 23:50 | Outpatient (REF) | payer MEDICARE, MEDICAID, SELFPAY ==
[2020-04-26 08:52] LABS: COVID-19 RT-PCR Result Not Detected ((See Note))
== END 2020-04-22 23:51 | disposition home or self-care (01) ==
LOC: LBN 23:50
PROVIDERS: PCP Student in an Organized Health Care Education/Training Program; Visit Provider Nurse Practitioner Adult Health
DX: Z20.822 Contact with and (suspected) exposure to COVID-19 (principal)
CPT/HCPCS: U0003

== ENCOUNTER 2020-04-25 02:04 | Outpatient (REF) | payer MEDICARE, MEDICAID, SELFPAY | END 2020-04-25 02:05 | disposition home or self-care (01) | LOC: LBN 02:04 | PROVIDERS: PCP Student in an Organized Health Care Education/Training Program; Visit Provider Family Medicine | DX: R50.9 Fever, unspecified (principal); R82.998 Other abnormal findings in urine | CPT/HCPCS: 87077; 87070; 87086; 87205 ==

== ENCOUNTER 2020-04-29 14:26 | Outpatient (REF) | payer MEDICARE, MEDICAID, SELFPAY ==
[2020-04-30 17:28] LABS: COVID-19 RT-PCR Result Not Detected ((See Note))
== END 2020-04-29 14:27 | disposition home or self-care (01) ==
LOC: LBN 14:26
PROVIDERS: PCP Student in an Organized Health Care Education/Training Program; Visit Provider Nurse Practitioner Adult Health
DX: Z20.822 Contact with and (suspected) exposure to COVID-19 (principal)
CPT/HCPCS: U0003

== ENCOUNTER 2020-05-06 12:08 | Outpatient (REF) | payer MEDICARE, MEDICAID, SELFPAY ==
[2020-05-11 07:41] LABS: COVID-19 RT-PCR Result Not detected ((See Note))
== END 2020-05-06 12:09 | disposition home or self-care (01) ==
LOC: LBN 12:08
PROVIDERS: PCP Student in an Organized Health Care Education/Training Program; Visit Provider Nurse Practitioner Adult Health
DX: Z20.822 Contact with and (suspected) exposure to COVID-19 (principal)
CPT/HCPCS: U0003

== ENCOUNTER 2020-05-14 02:27 | Outpatient (RCR) | payer MEDICARE, MEDICAID, SELFPAY ==
[2020-04-23] MEDS: Normal Saline Flush 10 ML SYR IVP (14:07)
[2020-04-23] MEDS: Heparin 500 UNITS/5 ML SYRINGE IV (14:07)
[2020-04-30] MEDS: Heparin 500 UNITS/5 ML SYRINGE IV (14:12)
[2020-04-30] MEDS: Normal Saline Flush 10 ML SYR IVP (14:12)
[2020-05-07] MEDS: Heparin 500 UNITS/5 ML SYRINGE IV (13:31)
[2020-05-07] MEDS: Normal Saline Flush 10 ML SYR IVP (13:31)
[2020-05-14] MEDS: Normal Saline Flush 10 ML SYR IVP (14:24)
[2020-05-14] MEDS: Heparin 500 UNITS/5 ML SYRINGE IV (14:24)
== END 2020-05-20 23:59 | disposition home or self-care (01) ==
LOC: INF 02:27
PROVIDERS: PCP Student in an Organized Health Care Education/Training Program; Visit Provider Family Medicine
DX: E88.01 Alpha-1-antitrypsin deficiency (principal)
CPT/HCPCS: 96374; J0257

== ENCOUNTER 2020-06-16 16:25 | Outpatient (REF) | payer MEDICARE, MEDICAID, SELFPAY ==
[2020-06-16 17:00] LABS: Anion Gap 2.4 mmol/L (3-11); BUN 17 mg/dL (7-18); CO2 37.6 mmol/L (21.0-32.0); CREATININE 0.5 mg/dL (0.70-1.30); Calcium 8.9 mg/dL (8.5-10.1); Chloride 99 mmol/L (98-107); Glucose 79 mg/dL (74-106); Potassium 4.3 mmol/L (3.5-5.1); Sodium 139 mmol/L (136-145)
== END 2020-06-16 16:26 | disposition home or self-care (01) ==
LOC: LBN 16:25
PROVIDERS: PCP Student in an Organized Health Care Education/Training Program; Visit Provider Family Medicine
DX: E78.5 Hyperlipidemia, unspecified (principal)
CPT/HCPCS: 80048

== ENCOUNTER 2020-06-18 01:45 | Outpatient (RCR) | payer MEDICARE, MEDICAID, SELFPAY ==
[2020-05-21] MEDS: Normal Saline Flush 10 ML SYR IVP (14:13)
[2020-05-21] MEDS: Heparin 500 UNITS/5 ML SYRINGE IV (14:13)
[2020-05-28] MEDS: Heparin 500 UNITS/5 ML SYRINGE IV (14:04)
[2020-05-28] MEDS: Normal Saline Flush 10 ML SYR IVP (14:04)
[2020-06-04] MEDS: Heparin 500 UNITS/5 ML SYRINGE IV (14:03)
[2020-06-04] MEDS: Normal Saline Flush 10 ML SYR IVP (14:03)
[2020-06-11] MEDS: Heparin 500 UNITS/5 ML SYRINGE IV (14:00)
[2020-06-11] MEDS: Normal Saline Flush 10 ML SYR IVP (14:17)
[2020-06-18] MEDS: Heparin 500 UNITS/5 ML SYRINGE IV (14:58)
[2020-06-18] MEDS: Normal Saline Flush 10 ML SYR IVP (14:58)
== END 2020-06-19 23:59 | disposition home or self-care (01) ==
LOC: INF 01:45
PROVIDERS: PCP Student in an Organized Health Care Education/Training Program; Visit Provider Family Medicine
DX: E88.01 Alpha-1-antitrypsin deficiency (principal)
CPT/HCPCS: 96374; 96523; J0257

== ENCOUNTER 2020-07-16 02:10 | Outpatient (RCR) | payer MEDICARE, MEDICAID, SELFPAY ==
[2020-06-25] MEDS: Heparin 500 UNITS/5 ML SYRINGE (13:50)
[2020-06-25] MEDS: Normal Saline Flush 10 ML SYR IVP (13:50)
[2020-07-02] MEDS: Normal Saline Flush 10 ML SYR IVP (13:58)
[2020-07-09] MEDS: Heparin 500 UNITS/5 ML SYRINGE IV (14:05)
[2020-07-09] MEDS: Normal Saline Flush 10 ML SYR IVP (14:05)
[2020-07-16] MEDS: Heparin 500 UNITS/5 ML SYRINGE IV (14:09)
[2020-07-16] MEDS: Normal Saline Flush 10 ML SYR IVP (14:09)
== END 2020-07-20 23:59 | disposition home or self-care (01) ==
LOC: INF 02:10
PROVIDERS: PCP Student in an Organized Health Care Education/Training Program; Visit Provider Family Medicine
DX: E88.01 Alpha-1-antitrypsin deficiency (principal); Z45.2 Encounter for adjustment and management of vascular access device
CPT/HCPCS: 96374; J0257

== ENCOUNTER 2020-08-13 03:25 | Outpatient (RCR) | payer MEDICARE, MEDICAID, SELFPAY ==
[2020-07-23] MEDS: Normal Saline Flush 10 ML SYR IVP (14:13)
[2020-07-23] MEDS: Heparin 500 UNITS/5 ML SYRINGE IV (14:13)
[2020-07-30] MEDS: Heparin 500 UNITS/5 ML SYRINGE IV (14:05)
[2020-07-30] MEDS: Normal Saline Flush 10 ML SYR IVP (14:05)
[2020-08-06] MEDS: Normal Saline Flush 10 ML SYR IVP (14:12)
[2020-08-06] MEDS: Heparin 500 UNITS/5 ML SYRINGE IV (14:12)
[2020-08-13] MEDS: Heparin 500 UNITS/5 ML SYRINGE IV (14:02)
[2020-08-13] MEDS: Normal Saline Flush 10 ML SYR IVP (14:02)
== END 2020-08-19 23:59 | disposition home or self-care (01) ==
LOC: INF 03:25
PROVIDERS: PCP Student in an Organized Health Care Education/Training Program; Visit Provider Family Medicine
DX: E88.01 Alpha-1-antitrypsin deficiency (principal); J44.9 Chronic obstructive pulmonary disease, unspecified
CPT/HCPCS: 96374; J0257

== ENCOUNTER 2020-09-17 03:52 | Outpatient (RCR) | payer MEDICARE, MEDICAID, SELFPAY ==
[2020-08-20] MEDS: Heparin 500 UNITS/5 ML SYRINGE IV (14:14)
[2020-08-20] MEDS: Normal Saline Flush 10 ML SYR IVP (14:14)
[2020-08-27] MEDS: Normal Saline Flush 10 ML SYR IVP (14:03)
[2020-08-27] MEDS: Heparin 500 UNITS/5 ML SYRINGE IV (14:03)
[2020-09-03] MEDS: Normal Saline Flush 10 ML SYR IVP (13:45)
[2020-09-03] MEDS: Heparin 500 UNITS/5 ML SYRINGE IV (13:45)
[2020-09-10] MEDS: Normal Saline Flush 10 ML SYR IVP (14:22)
[2020-09-10] MEDS: Heparin 500 UNITS/5 ML SYRINGE IV (14:22)
[2020-09-17] MEDS: Normal Saline Flush 10 ML SYR IVP (14:41)
[2020-09-17] MEDS: Heparin 500 UNITS/5 ML SYRINGE IV (14:41)
== END 2020-09-19 23:59 | disposition home or self-care (01) ==
LOC: INF 03:52
PROVIDERS: PCP Student in an Organized Health Care Education/Training Program; Visit Provider Family Medicine
DX: E88.01 Alpha-1-antitrypsin deficiency (principal)
CPT/HCPCS: 96374; J0257

== ENCOUNTER 2020-09-23 15:35 | Outpatient (REF) | payer MEDICARE, MEDICAID, SELFPAY ==
[2020-09-25 15:27] LABS: COVID-19 RT-PCR Result Not Detected ((See Note))
== END 2020-09-23 15:36 | disposition home or self-care (01) ==
LOC: LBN 15:35
PROVIDERS: PCP Student in an Organized Health Care Education/Training Program; Visit Provider Family Medicine
DX: Z20.822 Contact with and (suspected) exposure to COVID-19 (principal)
CPT/HCPCS: U0003

== ENCOUNTER 2020-09-30 17:50 | Outpatient (REF) | payer MEDICARE, MEDICAID, SELFPAY ==
[2020-10-02 16:27] LABS: COVID-19 RT-PCR Result Not Detected ((See Note))
== END 2020-09-30 17:51 | disposition home or self-care (01) ==
LOC: LBN 17:50
PROVIDERS: PCP Student in an Organized Health Care Education/Training Program; Visit Provider Family Medicine
DX: Z20.822 Contact with and (suspected) exposure to COVID-19 (principal)
CPT/HCPCS: U0003

== ENCOUNTER 2020-10-01 03:41 | Outpatient (RCR) | payer MEDICARE, MEDICAID, SELFPAY ==
[2020-09-25] MEDS: Heparin 500 UNITS/5 ML SYRINGE IV (14:12)
[2020-09-25] MEDS: Normal Saline Flush 10 ML SYR IVP (14:12)
[2020-10-01] MEDS: Normal Saline Flush 10 ML SYR IVP (13:55)
[2020-10-01] MEDS: Heparin 500 UNITS/5 ML SYRINGE IV (13:55)
== END 2020-10-11 23:59 | disposition home or self-care (01) ==
LOC: INF 03:41
PROVIDERS: PCP Student in an Organized Health Care Education/Training Program; Visit Provider Family Medicine
DX: E88.01 Alpha-1-antitrypsin deficiency (principal)
CPT/HCPCS: 96374; J0257

== ENCOUNTER 2020-10-06 17:24 | Inpatient (IN) | payer MEDICARE, MEDICAID, SELFPAY ==
[2020-10-06] VITALS (24 sets, daily range): BP systolic 101–131; BP diastolic 67–83; PULSE 90–108; RESP 2–23; TEMP 36.7–36.8; O2SAT 81–99
--- NOTE | 2020-10-06 17:15 | RT.EKG_ITS ---
APPROVED REPORT Exam: Resting ECG Reason for Exam: shortness of breath Patient Location: E HR:97 bpm ECG Measurements Heart Rate 97 AXIS UT 132 P 87 QRSd 89 QRS -90 QT 363 T 77 QTc 460 Conclusion Sinus rhythm...normal P axis, V-rate 60- 99 Right atrial enlargement...P>0.25mV 2 lds or<-0.24mV aVR/aVL Left anterior fascicular block...axis(240,-40), init forces inf Low voltage, extremity leads...all extremity leads <0.5mV Probable right ventricular hypertrophy...prominent R or R' w/ RAD or CHANTELLE Nonspecific T abnormalities, anterior leads...T <-0.10mV, V2-V4 significant motion artifact but no clear ischemic findings
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
--- NOTE | 2020-10-06 17:45 | DI.CT_ITS ---
Exam(s) CT CHEST PE CTA EXAM: CT CHEST PE CTA CLINICAL HISTORY: hypoxia, shortness of breath. TECHNIQUE: Imaging Protocol: CT angiography of the chest was performed using pulmonary embolus carolyn col. Multi planar reconstructions were performed. CONTRAST MATERIAL: Intravenous: Omnipaque 350 Contrast volume: 100 cc COMPARISON: CT CHEST WITH CONTRAST from 03/26/2015 FINDINGS: CHEST: PULMONARY ARTERIES: In right lower lobe pulmonary arteries there is subtle filling defect may be rela kassidy to pulmonary emboli, possibly nonacute. LUNGS: There is severe COPD emphysematous changes.. Again noted is decreased left hemithoracic volum e which is possibly related to prior surgery. There is now pleural based subpleural infiltrate in th e left lower lobe, not associated with obvious pleural effusion. Also suggestion of a mass or adenop athy in left hilum. In the opposite-right lung there is a fissure based nodule is somewhat irregular and measures 1.5 by 1.0 cm, requiring close follow-up to rule out neoplasm. Coarse interstitial patchy infiltrate right lower lobe right lung base also noted, slightly more so than on the prior study. No pleural effusion . No pneumothorax. No new findings in the trachea and mainstem bronchi. MEDIASTINUM: There is left hilar and subcarinal adenopathy noted, more so than previous. Right hilum appears unchanged. No axillary adenopathy. Visualized thyroid unremarkable. CARDIAC: Heart size is upper normal. There is no pericardial effusion.Caliber of the thoracic aorta is within normal limits. There is no significant shift of the interventricular septum. PARTIALLY VISUALIZED UPPERMOST ABDOMEN: No obvious findings OSSEOUS: No significant osseous lesions.. IMPRESSION: 1. Severe COPD and decreased left hemithoracic volume, as was also evident on the 2016 study..However , there appears to be increasing infiltrate in both lung bases. There is also a nodular infiltrate i n the right lung measuring 15 x 10 millimeters, requiring close follow-up to rule out neoplasm. 2. There is adenopathy in the left hilum and sub carinal region. 3. There is subtle filling defect in right lower lobe pulmonary artery. Possibly pulmonary embolism although may not be acute, given the appearance. This study was 1st read by [facility] Final report called by myself to ER provider Monday10/07/2020 9:04 a.m.. Apparently this patient was admitted last night. RADIATION DOSE DELIVERED: 354.46mGy.cm Total DLP DATA REPOSITORY: All CT scans at this facility are submitted to the National Radiology Data Registry (NRDR) Dose Index Registry (DIR) with the [employer] ([employer]). RADIATION OPTIMIZATION: All CT scans at this facility use at least one of these dose optimization te chniques: automated exposure control; mA and/or kV adjustment per patient size (includes targeted exa ms where dose is matched to clinical indication); or iterative reconstruction.
[2020-10-06] MEDS: methylPREDNISolone SUCC 125 MG VIAL IVP (17:52)
[2020-10-06 17:53] LABS: Abs Immature Grans 0.03 10^3/uL (0.0-0.06); Absolute Basophil Count 0.02 10^3/uL (0.0-0.2); Absolute Eosinophil Count 0.26 10^3/uL (0.0-0.7); Absolute Lymphocyte Count 0.95 10^3/uL (1.2-3.4); Absolute Monocyte Count 0.66 10^3/uL (0.1-0.8); Absolute Neutrophil Count 8.51 10^3/uL (1.2-6.7); Basophils % 0.2; Eosinophils % 2.5; HCT 38.9 % (40.0-50.0); HGB 10.7 g/dL (13.5-17.5); Immature Grans % 0.3; Lymphocytes % 9.1; MCH 23.6 pg (27.0-33.0); MCHC 27.5 % (32.0-36.0); MCV 85.9 fL (80-95); MPV 10.6 fL (8.0-11.0); Monocytes % 6.3; Neutrophils % 81.6; Nucleated RBC 0 %; Platelet Count 333 10^3/uL (130-400); RBC 4.53 10^6/uL (4.36-5.78); RDW 16.1 % (11.8-14.1); WBC 10.43 10^3/uL (4.4-10.8)
[2020-10-06 17:57] LABS: Source Nasal/Nares
[2020-10-06] MEDS: Omnipaque 350 MG/ML 100 ML BTL 80 ML IJ (18:06)
[2020-10-06] MEDS: Normal Saline - Diluent 50 ML VIAL IV (18:07)
[2020-10-06 18:13] LABS: INR 1.1 (0.9-1.1); PTT Activated 24.3 sec (21.0-27.5); Prothrombin Time 11.5 sec (9.3-11.0)
[2020-10-06 18:18] LABS: ALT 10 U/L (16-63); AST 20 U/L (15-37); Albumin 3.1 g/dL (3.4-5.0); Alkaline Phosphatase 122 U/L (46-116); Anion Gap -2.8 mmol/L (3-11); BUN 14 mg/dL (7-18); Bilirubin, Total 0.4 mg/dL (0.2-1.0); CO2 43.8 mmol/L (21.0-32.0); CREATININE 0.6 mg/dL (0.70-1.30); Chloride 95 mmol/L (98-107); Glucose 104 mg/dL (74-106); Magnesium 2.1 mg/dL (1.8-2.4); NT-proBNP 1019 pg/mL (<300); Potassium 3.9 mmol/L (3.5-5.1); Sodium 136 mmol/L (136-145); Total Protein 8.6 g/dL (6.4-8.2); Troponin I < 0.05 ng/mL (<0.06)
[2020-10-06] MEDS: Albuterol/Ipratropium 3 ML UPD VIAL UPD ×2 (18:38→21:29)
--- NOTE | 2020-10-06 18:46 | DI.VRAD_ITS ---
PROCEDURE INFORMATION: Exam: CTA Chest With Contrast Exam date and time: 10/06/2020 6:03 PM Age: 59 years old Clinical indication: Other: Hypoxia, shortness of breath TECHNIQUE: Imaging protocol: Computed tomographic angiography of the chest with contrast. 3D rendering (Not supervised by radiologist): MIP and/or 3D reconstructed images were created by the technologist. Radiation optimization: All CT scans at this facility use at least one of these dose optimization techniques: automated exposure control; mA and/or kV adjustment per patient size (includes targeted exams where dose is matched to clinical indication); or iterative reconstruction. Contrast material: OMNIPAQUE 350; Contrast volume: 80 ml; Contrast route: INTRAVENOUS (IV); COMPARISON: CT CHEST WITH CONTRAST 03/26/2015 2:32 PM FINDINGS: Tubes, catheters and devices: Right-sided Port-A-Cath remains in place. Pulmonary arteries: Normal. No pulmonary emboli. Aorta: Unremarkable. No aortic aneurysm. No aortic dissection. Lungs: There is severe COPD. There is relative lung volume loss on the left compared to the right, developed in the interval from prior study. There is some coarse mild airspace opacity in the left lower lobe. There appears to be some degree of bronchial wall thickening at both lung bases, left worse than right. There is some patchy ill-defined airspace disease in the right lower lobe. There is a focal nodule in the right upper lobe measuring up to 1 cm series 4, image 35. Pleural spaces: Unremarkable. No pneumothorax. No pleural effusion. Heart: Unremarkable. No cardiomegaly. No pericardial effusion. Mediastinal space: There is abnormal soft tissue attenuation at the left hilar level. Lymph nodes: Unremarkable. No enlarged lymph nodes. Bones/joints: Unremarkable. No acute fracture. Soft tissues: Unremarkable. Other findings: Respiratory motion slightly limits the exam. IMPRESSION: 1. No evidence for pulmonary embolus. Respiratory motion slightly limits assessment. If there is strong clinical concern for pulmonary embolus, bilateral lower extremity Venous sonography could help characterize further. Impression new. Left lower lobe coarse airspace disease, probable consolidation with associated bronchitis. Probable minimal right lower lobe bronchitis with atelectasis. 2. Concern for left hilar mass. 3. Severe COPD. Dictated and Authenticated by: Jasmin Galindo MD. Ordering:JERE Zavala MD
[2020-10-06 19:01] LABS: COVID-19 PCR Negative (Negative)
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
[2020-10-06] MEDS: PIPERACILLIN/TAZO 4.5 GM in Normal Saline 100 ML IVPB (19:30)
[2020-10-06 21:03] LABS: Troponin I < 0.05 ng/mL (<0.06)
[2020-10-07] VITALS (14 sets, daily range): BP systolic 100–109; BP diastolic 62–77; PULSE 77–99; RESP 8–22; TEMP 31–37; O2SAT 90–96
--- NOTE | 2020-10-07 | DI.US_ITS ---
Exam(s) US EXTREMITY VENOUS BI EXAM: US EXTREMITY VENOUS BI CLINICAL HISTORY: r/o dvt, found to have PE TECHNIQUE: Grayscale, color, and doppler imaging of the deep venous system of both lower extremities was performed. COMPARISON: US US ECHOCARDIOGRAM from 10/07/2020 FINDINGS: There is no evidence of intraluminal thrombus and there is normal compression and augmentation demons trated within the common femoral veins, femoral veins, and popliteal veins of both lower extremities. In the calves the interrogated veins also exhibit normal compression/ augmentation properties. The greater saphenous veins also appear patent as do the saphenofemoral junctions bilaterally.. IMPRESSION: 1. No ultrasound evidence of DVT in either lower extremity. DATA REPOSITORY:
[2020-10-07] MEDS: methylPREDNISolone SUCC 125 MG VIAL 80 MG IVP (02:56)
[2020-10-07] MEDS: PIPERACILLIN/TAZO 3.375 GM in Normal Saline 50 ML IVPB ×3 (02:56→14:15)
[2020-10-07 06:50] LABS: HCO3 (Venous) 44 mmol/L (23-28); pO2 (Venous) 195 mmHg
[2020-10-07 06:53] LABS: Abs Immature Grans 0.02 10^3/uL (0.0-0.06); Absolute Basophil Count 0.01 10^3/uL (0.0-0.2); Absolute Eosinophil Count 0.01 10^3/uL (0.0-0.7); Absolute Lymphocyte Count 0.42 10^3/uL (1.2-3.4); Absolute Monocyte Count 0.05 10^3/uL (0.1-0.8); BE (Venous) > 15 mmol/L (-2-3); Basophils % 0.1; Eosinophils % 0.1; HCT 34.5 % (40.0-50.0); HGB 9.7 g/dL (13.5-17.5); Immature Grans % 0.3; Lymphocytes % 6.2; MCH 24.1 pg (27.0-33.0); MCHC 28.1 % (32.0-36.0); MCV 85.8 fL (80-95); Monocytes % 0.7; Neutrophils % 92.6; Nucleated RBC 0 %; O2 Sat (Venous) > 99 %; Platelet Count 305 10^3/uL (130-400); RBC 4.02 10^6/uL (4.36-5.78); RDW 16.1 % (11.8-14.1); RDW-SD 51.5 fL; WBC 6.79 10^3/uL (4.4-10.8); pCO2 (Venous) 71 mmHg (41-51)
[2020-10-07 07:05] LABS: Absolute Neutrophil Count 6.29 10^3/uL (1.2-6.7)
[2020-10-07 07:28] LABS: ALT 11 U/L (16-63); AST 18 U/L (15-37); Albumin 2.7 g/dL (3.4-5.0); Alkaline Phosphatase 105 U/L (46-116); Anion Gap -2.7 mmol/L (3-11); BUN 11 mg/dL (7-18); Bilirubin, Total 0.3 mg/dL (0.2-1.0); CO2 41.7 mmol/L (21.0-32.0); CREATININE 0.5 mg/dL (0.70-1.30); Calcium 8.7 mg/dL (8.5-10.1); Chloride 98 mmol/L (98-107); Glucose 108 mg/dL (74-106); Potassium 4.4 mmol/L (3.5-5.1); Sodium 137 mmol/L (136-145); Total Protein 7.8 g/dL (6.4-8.2)
[2020-10-07] MEDS: Albuterol/Ipratropium 3 ML UPD VIAL UPD ×2 (07:52→14:53)
[2020-10-07 08:31] LABS: HCO3 45 mmol/L (22-26); pH 7.39 (7.35-7.45); pO2 62 mmHg (80-105); sO2 91 % (95-98); tCO2 43 mmol/L (23-27)
[2020-10-07 08:35] LABS: BE > 15 mmol/L (-2-3); Site Right Radial; pCO2 76 mmHg (35-45)
[2020-10-07] MEDS: Fluticasone NASAL SPRAY 16 GM BTL NS (09:28)
[2020-10-07] MEDS: Diclofenac 1% Gel 100 GM TUBE TP (09:28)
[2020-10-07] MEDS: Sertraline 50 MG TAB 100 MG PO (09:29)
[2020-10-07] MEDS: Cetirizine 10 MG TAB PO (09:29)
[2020-10-07] MEDS: predniSONE 20 MG TAB 40 MG PO (09:29)
[2020-10-07] MEDS: Enoxaparin 40 MG/0.4 ML SYR SC (09:29)
[2020-10-07] MEDS: Aspirin E.C. 81 MG TABEC PO (09:29)
[2020-10-07] MEDS: Omeprazole 20 MG CAPCR PO (09:29)
[2020-10-07] MEDS: guaiFENesin 600 MG TABCR PO ×2 (09:29→14:16)
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
--- NOTE | 2020-10-07 10:12 | RESPIRATORY ---
Pt feels like it's hard to breath with the hhfnc and says it's too hot. Flow was turned up and heater is on lowest settings. There's also a fan at the pt's bedside. Patient has gone over his options for O2 use and the need to continue with the HHFNC as he says he will absolutely not tolerate a cpap unit. Pt is also complaining about sores behind his ears from nc use.
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
[2020-10-07] MEDS: Enoxaparin 30 MG/0.3 ML SYR SC (11:04)
[2020-10-07 12:33] LABS: HCO3 47 mmol/L (22-26); pH 7.38 (7.35-7.45); pO2 91 mmHg (80-105); sO2 97 % (95-98); tCO2 44 mmol/L (23-27)
[2020-10-07 12:37] LABS: BE > 15 mmol/L (-2-3); FIO2 51 %; FIO2L 55 L; Site Left Radial; pCO2 80 mmHg (35-45)
[2020-10-07 12:52] LABS: HCO3 (Venous) 47 mmol/L (23-28); O2 Sat (Venous) 97 %; TCO2 (Venous) 44 mmol/L (24-29); pH (Venous) 7.42 (7.31-7.41); pO2 (Venous) 85 mmHg
[2020-10-07 12:55] LABS: BE (Venous) > 15 mmol/L (-2-3); pCO2 (Venous) 72 mmHg (41-51)
--- NOTE | 2020-10-07 13:51 | PHACLINREV_ITS ---
Pharmacy Admission Review - Admission Clinical Review (Last Reviewed 10/06/20 @ 19:13 by Peter Barrera) Chronic respiratory failure (Acute) Bronchiectasis with (acute) exacerbation (Acute) Bronchiectasis (Acute) Hypoxemia (Acute) COPD exacerbation (Acute) Breath, shortness (Acute) Pneumonia (Acute 05/19/13) pneumococcal vaccine [Pneumococcal Vaccine] Adverse Reaction (Unverified 10/06/20 19:42) local reaction to shot site Resuscitation Status DNR/DNI Height 5 ft 8 in Weight 63.8 kg - Renal Dosing Renal Dosing: BUN 11 mg/dL (7-18) 10/07/20 06:32 Creatinine 0.5 mg/dL (0.70-1.30) L 10/07/20 06:32 Medications needing adjustments: Reviewed (CrCl~87 mL/min current meds okay.) - Anticoagulation Anticoagulation: Hgb 9.7 g/dL (13.5-17.5) L 10/07/20 06:32 Hct 34.5 % (40.0-50.0) L 10/07/20 06:32 Plt Count 305 10^3/uL (130-400) 10/07/20 06:32 INR 1.1 (0.9-1.1) 10/06/20 17:45 Creatinine 0.5 mg/dL (0.70-1.30) L 10/07/20 06:32 DVT Prophylaxis: N/A Therapeutic Anticoagulation: Reviewed Medications: Enoxaparin (Treatment doses for possible PE) - Opiate Usage Evaluate Pain Scale/Pains Meds: Intervened (Methadone was cancelled, not mentioned in H&P. Will ask/mention to provider) Scheduled Bowel Reg ordered if on Opiates?: No (Docusate and PEG prn) - Relevant Labs Sodium 137 mmol/L (136-145) 10/07/20 06:32 Potassium 4.4 mmol/L (3.5-5.1) 10/07/20 06:32 Chloride 98 mmol/L (98-107) 10/07/20 06:32 Magnesium 2.1 mg/dL (1.8-2.4) 10/06/20 17:45 Electrolytes, C-Reactive P, ESR: Reviewed - DM Control DM Control: Glucose 108 mg/dL (74-106) H 08/18/21 06:32 Insulin Dosing: N/A - Heart Failure/WI Heart Failure/WI: Troponin I < 0.05 ng/mL (<0.06) 10/06/20 20:32 NT-Pro-B Natriuret Pep 1019 pg/mL (<300) H 10/06/20 17:45 EF%, MAKAYLA's, B-Blockers, Diuretics: Reviewed - BP Control BP Control: Blood Pressure 101/65 Blood Pressure 106/73 Blood Pressure 108/70 If elevated: N/A - Qtc Review If Elevated: N/A (QTc 460 upon admission) - IV to PO Switch IV Medications: Reviewed - Home Meds Home Med List reviewed: Intervened (Combivent removed from home med list as last filled 01/2020. Currently uses duonebs. Prolastin C not listed on home med list, but pt receives this weekly infusion.) Relevent Home Meds Not ordered & why?: betamethasone, bisacodyl, diazepam(has lorazepam ordered), methadone, simethicone, senna, and sodium phosphates (PRN) - Current meds Current Medication Order Review: Intervened (Discontinued DI meds, adjusted timing of omeprazole based on biomedical engineering technologist timing policy.) - Comments Comments/Follow Ups: Monitor for changes in labs, vitals and medication orders. Watch for cultures pending. Antibiotic Activity - Pharmacy Antibiotic Review Pharmacy Antibiotic Activity: Reviewed, no change (Zosyn q6h to cover for pneumonia)
[2020-10-07] MEDS: Bacitracin 1 PACKET TP (14:16)
[2020-10-07] MEDS: Normal Saline Flush 10 ML SYR IVP (14:16)
--- NOTE | 2020-10-07 16:55 | W.PM.PROGNOT ---
Date of Service Date of service: 10/07/20 Time of Service: 16:56 Assessment and Plan Assessment and plan (1) Chronic respiratory failure: Start date: 10/07/20 Start time: 14:00 Status: Acute Assessment and plan: He has decided to go comfort measures after suffering with severe CO2 retention most of the day and trying to place on bipap, dr. mccormick came in and patient decided to go comfort measures. He was placed on morphine drip. ativan as needed. Meds for secretions D/c oxygen Palliative to follow Qualifiers: Respiratory failure complication: hypoxia and hypercapnia Qualified Code(s): J96.11 - Chronic respiratory failure with hypoxia; J96.12 - Chronic respiratory failure with hypercapnia (2) Comfort measures only status: Start date: 10/07/20 Start time: 14:00 Status: Acute Assessment and plan: decided to go comfort measures. as above (3) Hypoxemia: Start date: 10/07/20 Start time: 14:00 Status: Chronic Assessment and plan: Alpha 1 antitrypsan causing severe disease, With CO2 retention as above Subjective Subjective Patient reports: other Interval history since last seen: Patient has decided to go on comfort measures. He was retaining CO2 and needing bipap, he was refusing bipap, both myself and Dr. Mccormick spoke to him about his options with wearing the bipap mask to save his life or going on comfort measure to comfortably and what would happen if he refused to wear the bipap. At first when I discussed the options he wanted bipap however after having a discussion with Dr. Mccormick he was very clear that he wanted to go comfort measures and just be comfortable. He was tired of fighting. His only request is that Pati from infusion see him tomorrow. He will be placed on a drip and given ativan as needed along with other comforting options. Exam Narrative Exam Narrative: Middle aged male appears older than stated age. Wants to go on comfort measures, sob, LS diminished. He will be placed on a morphine drip, ativan as needed with antiemetics Objective Last Vital Signs Temp 36.8 C 10/07/20 16:05 Pulse 91 H 10/07/20 16:05 Resp 18 10/07/20 16:05 BP 100/62 10/07/20 16:05 Pulse Ox 92 10/07/20 16:05 Laboratory Results - last 24 hr 10/06/20 10/06/20 10/06/20 17:45 17:45 17:45 WBC 10.43 RBC 4.53 Hgb 10.7 L Hct 38.9 L MCV 85.9 MCH 23.6 L MCHC 27.5 L RDW 16.1 H Plt Count 333 MPV 10.6 Immature Gran % 0.3 Neutrophils % 81.6 Lymphocytes % 9.1 Monocytes % 6.3 Eosinophils % 2.5 Basophils % 0.2 Nucleated RBC % 0 Absolute Neutrophils 8.51 H Absolute Lymphocytes 0.95 L Absolute Monocytes 0.66 Absolute Eosinophils 0.26 Absolute Basophils 0.02 PT 11.5 H INR 1.1 APTT 24.3 ABG Sample Site ABG pH ABG pCO2 ABG pO2 ABG HCO3 ABG Total CO2 ABG O2 Saturation ABG Base Excess VBG pH VBG pCO2 VBG pO2 VBG HCO3 VBG Total CO2 VBG O2 Saturation VBG Base Excess Oxygen Liter Flow FiO2 Sodium 136 Potassium 3.9 Chloride 95 L Carbon Dioxide 43.8 H Anion Gap -2.8 L BUN 14 Creatinine 0.6 L Estimated GFR/1.73 m2 >= 60.00 Glucose 104 Calcium 9.0 Magnesium 2.1 Total Bilirubin 0.4 AST 20 ALT 10 L Alkaline Phosphatase 122 H Troponin I < 0.05 NT-Pro-B Natriuret Pep 1019 H Total Protein 8.6 H Albumin 3.1 L COVID-19 Source SARS-CoV-2 (PCR) 10/06/20 10/06/20 10/07/20 17:57 20:32 06:32 WBC RBC Hgb Hct MCV MCH MCHC RDW Plt Count MPV Immature Gran % Neutrophils % Lymphocytes % Monocytes % Eosinophils % Basophils % Nucleated RBC % Absolute Neutrophils Absolute Lymphocytes Absolute Monocytes Absolute Eosinophils Absolute Basophils PT INR APTT ABG Sample Site ABG pH ABG pCO2 ABG pO2 ABG HCO3 ABG Total CO2 ABG O2 Saturation ABG Base Excess VBG pH VBG pCO2 VBG pO2 VBG HCO3 VBG Total CO2 VBG O2 Saturation VBG Base Excess Oxygen Liter Flow FiO2 Sodium 137 Potassium 4.4 Chloride 98 Carbon Dioxide 41.7 H Anion Gap -2.7 L BUN 11 Creatinine 0.5 L Estimated GFR/1.73 m2 >= 60.00 Glucose 108 H Calcium 8.7 Magnesium Total Bilirubin 0.3 AST 18 ALT 11 L Alkaline Phosphatase 105 Troponin I < 0.05 NT-Pro-B Natriuret Pep Total Protein 7.8 Albumin 2.7 L COVID-19 Source Nasal/Nares SARS-CoV-2 (PCR) Negative 10/07/20 10/07/20 10/07/20 06:32 06:32 08:28 WBC 6.79 D RBC 4.02 L Hgb 9.7 L Hct 34.5 L MCV 85.8 MCH 24.1 L MCHC 28.1 L RDW 16.1 H Plt Count 305 MPV 11.0 Immature Gran % 0.3 Neutrophils % 92.6 Lymphocytes % 6.2 Monocytes % 0.7 Eosinophils % 0.1 Basophils % 0.1 Nucleated RBC % 0 Absolute Neutrophils 6.29 Absolute Lymphocytes 0.42 L Absolute Monocytes 0.05 L Absolute Eosinophils 0.01 Absolute Basophils 0.01 PT INR APTT ABG Sample Site Right Radial ABG pH 7.39 ABG pCO2 76 H* ABG pO2 62 L ABG HCO3 45 H ABG Total CO2 43 H ABG O2 Saturation 91 L ABG Base Excess > 15 H VBG pH 7.40 VBG pCO2 71 H* VBG pO2 195 VBG HCO3 44 H VBG Total CO2 VBG O2 Saturation > 99 VBG Base Excess > 15 H Oxygen Liter Flow FiO2 Sodium Potassium Chloride Carbon Dioxide Anion Gap BUN Creatinine Estimated GFR/1.73 m2 Glucose Calcium Magnesium Total Bilirubin AST ALT Alkaline Phosphatase Troponin I NT-Pro-B Natriuret Pep Total Protein Albumin COVID-19 Source SARS-CoV-2 (PCR) 10/07/20 10/07/20 12:30 12:45 WBC RBC Hgb Hct MCV MCH MCHC RDW Plt Count MPV Immature Gran % Neutrophils % Lymphocytes % Monocytes % Eosinophils % Basophils % Nucleated RBC % Absolute Neutrophils Absolute Lymphocytes Absolute Monocytes Absolute Eosinophils Absolute Basophils PT INR APTT ABG Sample Site Left Radial ABG pH 7.38 ABG pCO2 80 H* ABG pO2 91 ABG HCO3 47 H ABG Total CO2 44 H ABG O2 Saturation 97 ABG Base Excess > 15 H VBG pH 7.42 H VBG pCO2 72 H* VBG pO2 85 VBG HCO3 47 H VBG Total CO2 44 H VBG O2 Saturation 97 VBG Base Excess > 15 H Oxygen Liter Flow 55 FiO2 51 Sodium Potassium Chloride Carbon Dioxide Anion Gap BUN Creatinine Estimated GFR/1.73 m2 Glucose Calcium Magnesium Total Bilirubin AST ALT Alkaline Phosphatase Troponin I NT-Pro-B Natriuret Pep Total Protein Albumin COVID-19 Source SARS-CoV-2 (PCR)
[2020-10-07] MEDS: MORPHine 250 MG in Normal Saline 245 ML IV (17:12)
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
[2020-10-07] MEDS: Scopolamine 1 MG/3 DAYS PATCH TD (18:01)
[2020-10-07] MEDS: Albuterol/Ipratropium 3 ML UPD VIAL (18:41)
--- NOTE | 2020-10-07 18:42 | NUR.NOTE ---
Nursing Note: Patient has made transition from an acute level of care to comfort measures. He is on his nasal canula at 5 l 02 . MS drip has started with a 5 mg loading dose and now runs at 1 mg hour. He stated he is comfortable at this time. enterprise services manager, attempting to locate patients brother as to allow patient to speak to him . Nursing will continue to monitor and support the patient as he begins his next journey
--- NOTE | 2020-10-07 19:07 | NUR.NOTE ---
Nursing Note: Patient has refused fitzpatrick catheter for comfort, and he has still refused to lie on a side to relieve pressure
[2020-10-08] MEDS: Normal Saline Flush 10 ML SYR IVP ×2 (00:40→21:03)
[2020-10-08] MEDS: LORazepam 2 MG/ML VIAL 1 MG IVP ×2 (00:40→21:04)
--- NOTE | 2020-10-08 06:40 | NUR.NOTE ---
Nursing Note: Patient refused repositioning to reduce pressure on sacrum throughout this RN's shift on 10/08/20. Repositioning was offered every time this RN went to the patient room. Patient was educated on pressure sores and how repositioning helps; he still refused repositioning. He did allow boosts in bed. He also was using a sheep skin fabric under his buttocks/sacrum in bed.
--- NOTE | 2020-10-08 09:01 | NT_ITS ---
Date of service: 10/08/20 Time of Service: 09:01 PT Notes Visit Reasons: COPD Exacerbation,Bilateral Lower Lobe Pneum Hypox Patient converted to comfort measures as of 10/07/2020. No skilled services provide for this admission. Thank you for the opportunity to participate in the care of this patient. Ania Conley PT, DPT, CLT [facility] [place], [place]
--- NOTE | 2020-10-08 16:14 | CHAPLAIN ---
Yan was resting in bed when I visited. He is a long-term resident of [facility], and well know to [facility] staff, especially the infusion room. According to Dr. Davis's palliative care appointment with Yan yesterday, he said he is exhausted, has a poor quality of life and no longer wants to fight. He told Dr. Davis he does not want to be alone. I let him know that center director lead teacher is available to him 12/09 and we will try to get [facility] volunteers in to be with him. The [facility] are currently not coming into the hospital to be with patients, due to COVID restrictions, but Computer Security Coordinator, Elda Chase said she will ask for permission to bring them back, and it will likely take a few days.
[2020-10-08] MEDS: Senna TAB PO (21:03)
[2020-10-09] MEDS: LORazepam 2 MG/ML VIAL 1 MG IVP ×6 (08:50→23:50)
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
--- NOTE | 2020-10-09 10:29 | W.PM.PROGNOT ---
Date of Service Date of service: 10/09/20 Time of Service: 10:29 Assessment and Plan Assessment and plan (1) COPD exacerbation: Status: Acute Assessment and plan: This is a 59-year-old gentleman with end-stage COPD presenting with worsening hypoxemia, not responding to treatments, refusing bipap and hi flow. 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 discussed with Dr Wallace Subjective Subjective Patient reports: no new complaints Interval history since last seen: remains on comfort measures on morphine drip. Exam Const Orientation: alert HENMT Head: normal to inspection Ears: external ears normal General nose exam: external nose normal Mouth: moist mucous membranes Eyes General: appearance normal, both eyes and all related structures Neck Neck: normal visual inspection Resp Effort & Inspection: audible wheezes Cardio Rate: regular rate Skin General skin exam: no rashes or lesions noted Neuro General: patient alert and patient oriented x3 Extrem General: normal to inspection Psych Mental Status: mental status grossly normal Objective Last Vital Signs Temp 36.8 C 10/07/20 16:05 Pulse 91 H 10/07/20 16:05 Resp 18 10/07/20 16:05 BP 100/62 10/07/20 16:05 Pulse Ox 92 10/07/20 16:05
[2020-10-09] MEDS: Albuterol 2.5 MG/3 ML INH SOLN VIAL UPD ×2 (13:39→19:50)
--- NOTE | 2020-10-09 14:44 | CHAPLAIN ---
Shen was sitting up in his chair. He said he didn't sleep well but is comfortable. He is now on comfort measures and on a morphine drip. He has said he would like company. We are trying to arrange [employer] [facility] Volunteers as soon as they can be allowed back while following COVID restrictions.
--- NOTE | 2020-10-09 16:49 | PGE_ITS ---
Date of Service Date of service: 10/08/20 Time of Service: 13:00 Assessment and Plan Assessment and plan (1) Comfort measures only status: Start date: 10/08/20 Start time: 13:00 Status: Acute Assessment and plan: on comfort measures with morphine drip and Ativan as needed appears comfortable (2) Chronic respiratory failure: Start date: 10/08/20 Start time: 13:00 Status: Acute Assessment and plan: He has decided to go comfort measures after suffering with severe CO2 retention Meds for secretions D/c oxygen Palliative to follow as above Qualifiers: Respiratory failure complication: hypoxia and hypercapnia Qualified Code(s): J96.11 - Chronic respiratory failure with hypoxia; J96.12 - Chronic respiratory failure with hypercapnia (3) Hypoxemia: Start date: 10/08/20 Start time: 13:00 Status: Chronic Assessment and plan: Alpha 1 antitrypsan causing severe disease, With CO2 retention as above discussed with Dr. 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 Appears comfortable on gtt. Sleeping. Exam Narrative Exam Narrative: Middle aged male appears older than stated age. On comfort measures, sob, LS diminished. On a morphine drip, ativan as needed with antiemetics appears comfortable sleeping at this time. Objective Last Vital Signs Temp 36.8 C 10/07/20 16:05 Pulse 91 H 10/07/20 16:05 Resp 18 10/07/20 16:05 BP 100/62 10/07/20 16:05 Pulse Ox 92 10/07/20 16:05
[2020-10-09] MEDS: Normal Saline Flush 10 ML SYR IVP ×3 (19:53→23:50)
[2020-10-09 20:09] VITALS: PULSE 95; RESP 28
[2020-10-10] MEDS: LORazepam 2 MG/ML VIAL 1 MG IVP ×9 (00:52→23:45)
[2020-10-10] MEDS: Normal Saline Flush 10 ML SYR IVP ×6 (00:52→22:14)
[2020-10-10] MEDS: Glycopyrrolate 0.2 MG/1 ML VIAL IVP ×3 (03:45→17:01)
--- NOTE | 2020-10-10 14:20 | W.PM.PROGNOT ---
Date of Service Date of service: 10/10/20 Time of Service: 14:20 Assessment and Plan Assessment and plan (1) COPD exacerbation: Status: Acute Assessment and plan: This is a 59-year-old gentleman with end-stage COPD presenting with worsening hypoxemia, not responding to treatments, refusing bipap and hi flow. 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 increase morphine drip to moderate and adjust as needed. discussed with Dr West Subjective Subjective Patient reports: shortness of breath Interval history since last seen: remains on comfort measures on morphine drip, received multiple boluses overnight of morphine and ativan, also required promethazine. all given with good effect. Exam Const Orientation: alert HENMT Head: normal to inspection Ears: external ears normal General nose exam: external nose normal Mouth: moist mucous membranes Eyes General: appearance normal, both eyes and all related structures Neck Neck: normal visual inspection Resp Effort & Inspection: audible wheezes Cardio Rate: regular rate Skin General skin exam: no rashes or lesions noted Neuro General: patient alert and patient oriented x3 Extrem General: normal to inspection Psych Mental Status: mental status grossly normal Objective Last Vital Signs Temp 36.8 C 10/07/20 16:05 Pulse 95 H 10/09/20 20:09 Resp 28 H 10/09/20 20:09 BP 100/62 10/07/20 16:05 Pulse Ox 92 10/07/20 16:05
[2020-10-10] MEDS: Scopolamine 1 MG/3 DAYS PATCH TD ×2 (16:04→16:05)
[2020-10-11] MEDS: LORazepam 2 MG/ML VIAL 1 MG IVP ×3 (01:06→03:18)
--- NOTE | 2020-10-11 05:11 | EXPE_ITS ---
Date of service: 10/11/20 Time of Service: 05:12 Discharge Sum: Prov Provider Consults: 10/06/20 19:20 Palliative Care Consult [CONS] Routine Consultation Status:: Follow-up needed Clarification:: Manage/follow per spec. Reason for consult:: Patient with end-stage COPD with alpha-1 antitrypsin deficiency, smoker and long-term resident of local [place] [facility] who needs to have review of CODE STATUS now full code which may be unrealistic, previously having DNI. Discharge Sum: Diag PCOD Cause of : Acute on chronic respiratory failure with hypoxia and hypercapnia Contributing Factors (1) Pneumonia: (2) COPD exacerbation: (3) Jleau-[id number] deficiency: (4) Bronchiectasis: Discharge Sum: Summary Summary Details: Mr Villalobos was a 59 year old male who was admitted to [facility] hospitalist service on 10/06/20 with acute on chronic hypoxic hypercapnic respiratory failure due to COPD exacerbation due to bilateral pneumonia. The patient also had evidence of a possible pulmonary infarct suggesting an acute PE. He was not able to tolerate BiPAP and did not respond to treatment with IV antibiotics, steroids, and became progressively more dyspneic on high flow oxygen. The patient was evaluated by palliative care and made a decision to convert to comfort measures only. He peacefully on 10/11/20 at 04:02 and was pronounced at 04:04. We appreciate the opportunity to help take care of this patient in his final days and wish his loved ones well. Additional Data Confirmation of as documented by pronouncing clinician: no pulse, no respirations, no heart sounds and pupils fixed and dilated Family: contacted Attending/PCP notified?: Yes Attending Physician: Peter Mcfarland Was code activated?: No Autopsy requested?: No eligibility examiner notified?: No Organ bank notified?: Yes Advance directives: Yes Hospice patient?: No
== END 2020-10-11 04:40 | disposition expired | DRG 193 ==
LOC: ER 19:00 → MS 19:54
PROVIDERS: Internal Medicine; Nurse Practitioner Family; Admitting Provider Family Medicine; Emergency Provider Emergency Medicine; PCP Student in an Organized Health Care Education/Training Program; Visit Provider Family Medicine
DX: J18.9 Pneumonia, unspecified organism (principal); J96.21 Acute and chronic respiratory failure with hypoxia; J96.22 Acute and chronic respiratory failure with hypercapnia; I26.99 Other pulmonary embolism without acute cor pulmonale; J47.1 Bronchiectasis with (acute) exacerbation; E88.01 Alpha-1-antitrypsin deficiency; G89.29 Other chronic pain; M54.5 Low back pain; Z87.891 Personal history of nicotine dependence; Z99.81 Dependence on supplemental oxygen; Z66 Do not resuscitate; F41.9 Anxiety disorder, unspecified; Z20.822 Contact with and (suspected) exposure to COVID-19; J42 Unspecified chronic bronchitis; Z51.5 Encounter for palliative care
CPT/HCPCS: 36415; 71275; 80053; 82805; 87040; 87635; 93005; 96365; 96375; 99285; J1650; 83735; 83880; 84484; 85025; 85610; 85730; 87205; 93010; 93306; 93970; 94640; 94660; 99223; 99232; 99233; 99238; J1170; J2060; J2543; J2930; J3490; J7512; J7613; J7620